=== PATIENT | female | born 1950 | race Caucasian/White ===

== ENCOUNTER 2016-10-01 15:34 | Inpatient (IN) | payer MEDICARE, OTHER ==
--- NOTE | ~2016-10-01 | HP ---
History And Physical [facility] [address] [place]. [address] NAME: WILBUR DE LA VEGA : 52 STATUS : ADM Lana PAT#: [id number] AGE: 66 ADM/REG DATE : 10/01/16 MR#: [id number] REPORT SERV DATE: 10/02/16 DICTATED BY: JOSH FOOTE DATE: 10/01/16 REPORT STATUS : Draft TRANSCRIBED BY: MODL DATE: 10/01/16 DATE OF ADMISSION: 10/01/2016 POINT OF ENTRY: [facility] Emergency Department PRIMARY CARE PHYSICIAN: Valentín Toscano M.D. CHIEF COMPLAINT: Falls with feet pain. HISTORY OF PRESENT ILLNESS: Ms De La Vega is a 66-year-old female with a history of coronary artery disease with prior myocardial infarction, COPD, recurrent falls, and other medical comorbidities, who presents to the emergency room today after she suffered mechanical fall at home on with resulting bilateral lower extremity pain. The patient states that she slipped on a wet floor in her bathroom on . She denies any loss conscious, denies any head trauma, but does state that she was on the ground for about six or seven hours until family members could assist her with getting up. She states that as a result of the fall she had severe bilateral lower extremity primarily of plantar foot pain. The patient also reports some fevers at home of 102 degrees Fahrenheit a few days ago as well as cough, sputum production, and shortness of breath. Family is also concerned that the patient may be misusing her prescribed Xanax through Dr. Toscano, stating that a bottle of 60 that was prescribed earlier this month now only has two or three remaining. Though reportedly, there have been multiple discussions with Dr. Toscano in the past about limiting and/or eliminating the source of her pain medications and other sedating medications. Initial evaluation in the emergency room with stable vital signs. White count is normal. CPK was normal. Chest x-ray concerning for a right lower lobe as well as possible left lower lobe infiltrate. CT scan of the brain as well as C-spine were negative. Plain films of the hip, lumbar spine, and lower extremities were reportedly unremarkable. She was subsequently admitted to the Hospitalist Service for further evaluation and management. REVIEW OF SYSTEMS: Comprehensive review of systems, otherwise negative unless listed in history of present illness. MEDICAL HISTORY: 1. Coronary artery disease with prior PR. 2. COPD. 3. Asthma. 4. History of recurrent pneumonia. 5. Anxiety. 6. Chronic pain. History And Physical [address] [address] NAME: WILBUR DE LA VEGA : 52 STATUS : ADM Lana PAT#: [id number] AGE: 66 ADM/REG DATE : 10/01/16 MR#: [id number] REPORT SERV DATE: 10/02/16 DICTATED BY: JOSH FOOTE DATE: 10/01/16 REPORT STATUS : Draft TRANSCRIBED BY: THUY DATE: 10/01/16 7. Hypertension. 8. Recurrent falls. 9. Chronic lower back pain. 10.Dysphagia with concern for aspiration. 11.Mitral valve prolapse. 12.Iron-deficiency anemia. 13.Restless legs syndrome. 14.Gastroesophageal reflux disease with peptic ulcer disease. 15.Osteoarthritis. 16.Osteoporosis. 17.Degenerative disk disease. SURGICAL HISTORY: 1. Appendectomy. 2. Cholecystectomy. 3. Abdominal hysterectomy. 4. Left leg and hip ORIF. 5. Wrist surgery. ALLERGIES: ASPIRIN, NSAIDS, IBUPROFEN, AND IMITREX. HOME MEDICATIONS: 1. Tylenol 600 mg p.r.n. 2. Xanax 0.5 mg b.i.d. p.r.n. 3. Dulera two-puff inhalation daily. 4. Multivitamin one tab daily. 5. Inderal 40 mg daily. 6. Spiriva one cap inhalation daily. SOCIAL HISTORY: She denies any tobacco, alcohol, or illicits. Extensive and secondhand smoke exposure as documented previously. FAMILY MEDICAL HISTORY: Mother is alive and healthy in her 80s. Father of suicide. Siblings, otherwise healthy. LABS AND IMAGIN. White count is 5.4, hemoglobin is 10.4, hematocrit is 31.6, platelet count is 214. INR 1.2. 2. Sodium is 135, potassium 3.9 chloride 101 carbon dioxide 30, BUN 8, creatinine 0.36, glucose is 113, calcium is 8.7, magnesium 2.1. 3. Chest x-ray per my review shows right lower lobe as well as possible left lower lobe infiltrate with COPD type changes and hyperinflation and flattened diaphragms. 4. CPK is 112. CK-MB is 1.6. Troponin less than 0.02. 5. Urinalysis: Spec gravity 1.014, clear with trace ketones with 10 white blood cells per high power field with negative nitrite and negative leukocyte esterase. 6. CT scan of the brain shows no acute intracranial abnormality. 7. CT scan of the C-spine shows no acute changes or fractures just shows some chronic History And Physical [address] [address] NAME: WILBUR DE LA VEGA : 52 STATUS : ADM Lana PAT#: [id number] AGE: 66 ADM/REG DATE : 10/01/16 MR#: [id number] REPORT SERV DATE: 10/02/16 DICTATED BY: JOSH FOOTE DATE: 10/01/16 REPORT STATUS : Draft TRANSCRIBED BY: THUY DATE: 10/01/16 degenerative disk disease, multilevel. 8. Hip plain film, per ER review and report shows no acute abnormality, needs to be followed up with radiology report. 9. Plain films of the feet, also per ER report, no acute fracture or dislocation. Again, report needs to be followed in the morning. 10.Plain films of the lumbar spine also shows no acute deformity or fracture. Again, formal radiology needs to be follow up in the morning. 11.EKG, per my review shows sinus tachycardia with the heart rate of 104 with no evidence of any acute ischemia or infarction. PHYSICAL EXAMINATION: VITAL SIGNS: Temperature is 98.6 degrees Fahrenheit, pulse is 100, respirations 17, saturating 98% on 3 L by nasal cannula, blood pressure /74. On recheck, blood pressure is now 145/68, pulse of 97, saturating 98% on room air. GENERAL: The patient is awake, alert, and in no acute distress. Resting comfortably. She is a well-developed, well-nourished, elderly female. Multiple family members are at bedside. HEENT: Atraumatic and normocephalic. Moist mucous membranes. Pupils are equal, round, and reactive to light and accommodation. Extraocular eye movements are intact. No scleral icterus. NECK: No jugular venous distention. No carotid bruits. CARDIAC: Regular rate and rhythm. No murmurs or gallops. Normal respiratory effort. LUNGS: The patient has the nasal cannula in place, however, it is not in her nostrils, and she is saturating well with no distress. Does have some bibasilar inspiratory rhonchi, right greater than left. ABDOMEN: Soft, nontender, and nondistended with good bowel sounds. No rebound, guarding, or rigidity. EXTREMITIES: Warm, perfused. No cyanosis, clubbing, or edema. SKIN: Warm and dry. PSYCH: Affect appropriate. NEURO: Alert and oriented x3. Cranial nerves II through XII grossly intact. Speech is normal. Gait not assessed. MUSCULOSKELETAL: The patient does not have any obvious deformities of the bilateral lower extremities including the feet. She states that her pain mainly is on the plantar surface. However, it was felt again with visual inspection, I do not appreciate any evidence of any bruising or ecchymosis and the patient is only mildly tender to palpation over the plantar surfaces bilaterally with intact range of motion as well as movement. ASSESSMENT AND PLAN: Ms De La Vega is a 66-year-old female with a recent mechanical fall at home with bilateral distal lower extremity pain, initially found to have evidence of bibasilar pneumonia. PROBLEM LIST: 1. Bibasilar pneumonia. 2. Recent mechanical fall. 3. Bilateral distal lower extremity pain. 4. Family concerned for misuse of prescription sedating medications. History And Physical [address] [place]. [address] NAME: WILBUR DE LA VEGA : 52 STATUS : ADM Lana PAT#: [id number] AGE: 66 ADM/REG DATE : 10/01/16 MR#: [id number] REPORT SERV DATE: 10/02/16 DICTATED BY: JOSH FOOTE DATE: 10/01/16 REPORT STATUS : Draft TRANSCRIBED BY: MODL DATE: 10/01/16 5. History of dysphagia and possible aspiration. 6. History of chronic obstructive pulmonary disease and asthma. 7. History of recurrent pneumonia. PLAN: 1. Bibasilar pneumonia. Unclear etiology of the patient's pneumonia. The patient denies any loss conscious during her fall. Denies any recent troubles with dysphagia or aspiration. There is family concern for misuse of her prescription medications stating that the bottles almost empty when in fact the prescription was filled earlier this month of Xanax. We will empirically treat for community-acquired pneumonia with Rocephin and azithromycin. Follow up sputum as well as blood cultures. 2. Recurrent recent fall with bilateral lower extremity pain. CT scan of the C-spine and brain were unremarkable. Plain films of the hip, lower extremities, and lumbar spine report also unremarkable. However, this needs formal report. Radiology report is needed to follow up in the morning. Continue to monitor. 3. Chronic obstructive pulmonary disease. I do not appreciate any evidence of acute exacerbation at this time. We will place her on some DuoNeb and given pneumonia. 4. Recurrent mechanical falls. We will ask Physical Therapy to see and evaluate the patient for fall risk. 5. DVT prophylaxis. Lovenox subcu. CODE STATUS: The patient wished to be full code. JCB/MODL Josh Foote MD / [id number] CC: Valentín Toscano M.D.
--- NOTE | ~2016-10-01 | CN ---
Consultation Report [facility] [address] [place]. [address] NAME: WILBUR DE LA VEGA : 52 STATUS : ADM IN [facility]#: [id number] AGE: 66 ADM/REG DATE : 10/03/16 MR#: [id number] REPORT SERV DATE: 10/04/16 DICTATED BY: DAVID OSORIO IV DATE: 10/04/16 REPORT STATUS : Draft TRANSCRIBED BY: MODOlimpia DATE: 10/04/16 PULMONARY CONSULTATION DATE OF CONSULTATION: 10/04/2016 REASON FOR REQUEST: Possible pulmonary fibrosis with recurrent pneumonias. HISTORY OF PRESENT ILLNESS: History is obtained from the records and from the patient. Ms. De La Vega is a 66-year-old female with reported history of asthma/COPD, recurrent pneumonia with residual scarring and bronchiectasis, GERD, dysphagia, anxiety/depression, hypertension, coronary artery disease, and chronic pain syndrome, who is admitted following a fall with reports of cough, sputum production, and new pulmonary infiltrates. The patient has been hospitalized twice last year for significant pneumonias. She has also had suffered falls during these with significant extremity injury. She reportedly has had increased cough, productive of zlvok-bv-layy phlegm over the last few days, and then fell for which she presented to the emergency room. There, she was found to have new infiltrates on the chest radiograph for which she was placed on ceftriaxone and azithromycin. Chest x-ray demonstrated new pulmonary infiltrates from her March studies with a repeat chest CT scan obtained today with results as noted below. The patient is on bronchodilator medications at home which she uses by her report on an as-needed basis. She is followed by Dr. Brewer. She does not have a nebulizer and uses supplemental oxygen at nighttime. She has very limited exercise tolerance. The patient has had persistent chronic weight loss with review of systems as noted. The patient has had increased symptoms of reflux recently and has had several large volume reflux events with possible aspiration by her report. PULMONARY HISTORY: Remarkable for no history of childhood asthma. She carries a diagnosis of adult COPD/asthma. She has had pneumonia by her report four to six occasions. She is a lifelong nonsmoker, however, had significant secondary smoke exposure from her . 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 She is up to date on the seasonal influenza vaccine and is unsure about the Prevnar status. PAST MEDICAL HISTORY: 1. Asthma/COPD. 2. Recurrent pneumonias with residual scarring and bronchiectasis. 3. Reflux disease. 4. Dysphagia. 5. Anxiety/depression. 6. Hypertension. 7. Coronary artery disease. 8. Chronic pain syndrome. PAST SURGICAL HISTORY: 1. Bilateral tubal ligation. 2. Left hip repair. Consultation Report [facility] [id number] [place]. [address] NAME: WILBUR DE LA VEGA : 52 STATUS : ADM IN [facility]#: [id number] AGE: 66 ADM/REG DATE : 10/03/16 MR#: [id number] REPORT SERV DATE: 10/04/16 DICTATED BY: DAVID OSORIO IV DATE: 10/04/16 REPORT STATUS : Draft TRANSCRIBED BY: THUY DATE: 10/04/16 3. Hysterectomy. 4. Cholecystectomy. 5. Appendectomy. 6. Left radial fracture and surgical repair. 7. Surgical repair of fracture of her left lower extremity. ALLERGIES: IMITREX, ASPIRIN, AND IBUPROFEN, ALL CAUSE RASH. CURRENT MEDICATIONS: The patient is on Ceftin 500 mg twice a day, Dulera 2 puffs twice a day, heparin 5000 units q.8 hours, Megace 40 mg daily, Prinivil 10 mg daily, Remeron 7.5 mg at bedtime, Spiriva one capsule daily, multivitamin daily, and Toprol-XL 50 mg daily. SOCIAL HISTORY: Remarkable for no tobacco, alcohol, or illicit drug use. She is . Has two children. FAMILY HISTORY: Remarkable for mother with hypertension and gout. Father with brain tumor and seizure. REVIEW OF SYSTEMS: 14-systems reviewed and pertinent positives as noted above. PHYSICAL EXAMINATION: GENERAL: This is a cachectic chronically ill-appearing, elderly female, appearing older than her stated age. No distress at rest. She is alert, awake, and oriented. VITAL SIGNS: Temperature is 97.9, pulse is 87, respiratory rate is 20, saturations are 98% on 2 L via nasal cannula, and blood pressure is 157/67. HEENT: Normocephalic, atraumatic. Extraocular movements are intact. Pupils are react to light. Sclerae and conjunctiva normal. She has temporal wasting. She has a Mallampati II to III airway with upper and lower dentures and elongated soft palate and narrowing of the posterior pharyngeal space. NECK: Without any palpable lymphadenopathy or thyromegaly. CHEST: The patient is an inspiratory squeaks and crackles at both bases. There are some scattered rhonchi that resolved with cough. No true wheezes are noted. CARDIOVASCULAR: Jugular venous pulsations are 5-6 cm. She has 2+ carotid upstrokes. No obvious bruit. She has a regular S1, S2 with no clear S3. She has a 2/6 systolic murmur at the upper sternal border. Peripheral pulses are diminished. ABDOMEN: Scaphoid. Soft. There are surgical scars noted. There are hypoactive bowel sounds. There is no palpable hepatosplenomegaly or mass. EXTREMITIES: Demonstrate shortening of the left leg. There is no cyanosis, clubbing, or palpable cords. NEUROLOGIC: The patient has decreased dorsiflexion of the left foot. Strength is otherwise 5-/5 and symmetric. There is muscle wasting. Sensation is intact to light touch. LABORATORY DATA: I reviewed the chest CT scan which demonstrates areas of scar and the previous areas of significant infiltrate. There are some new infiltrates that the Consultation Report [facility] [address] [place]. [address] NAME: WILBUR DE LA VEGA : 52 STATUS : ADM IN PAT#: [id number] AGE: 66 ADM/REG DATE : 10/03/16 MR#: [id number] REPORT SERV DATE: 10/04/16 DICTATED BY: DAVID OSORIO IV DATE: 10/04/16 REPORT STATUS : Draft TRANSCRIBED BY: THUY DATE: 10/04/16 predominantly right base. There are patchy areas of bronchiectasis, particularly in the middle lobe in the area of the infiltrate in the right upper lobe. There is decrease in the size of the left hemithorax with some pleural thickening likely from old inflammatory changes that has actually improved somewhat from previous studies. No significant adenopathy or masses noted. CBC: Hemoglobin is 11.5, hematocrit 34.4, platelet count was 372,000, and white count is 5.5. Chemistry: Sodium 137, potassium 3.4, chloride 102, bicarbonate 30, BUN 3, creatinine 0.38, glucose of 101. Urinalysis is unremarkable and a repeat potassium was 4.1 after replacement. ASSESSMENT AND PLAN: 1. Respiratory. There is no radiographic evidence for IPF or UIP type scarring. The patient does have areas of postinflammatory scarring with some bronchiectasis. I am concerned with the patient having significant reflux with aspiration and possible swallowing aspiration as well. She uses a normal diet in the care facility. We will continue the current bronchodilator medications. Acapella valve will be given with bronchiectasis to use twice a day. Oxygen will be provided as needed to maintain saturations greater than 90%. 2. Infectious disease. Quantitative immunoglobulins IgG subclass levels will be obtained with recurrent infections. HIV will be obtained with the weight loss. No recurrent infections. We will clarify with Dr. Toscano if she has received the Prevnar-13 vaccination. 3. Gastrointestinal. Protonix will be given twice a day. Head of bed will be kept at 30 to 45 degrees. A barium esophagram will be obtained, which we will also then look for reflux which persistent midchest dysphagia. 4. Neurologic. The patient had failed her swallow evaluation in March. She will be given a mechanical soft diet with chopped meats and gravy and thin liquids. The patient be given thiamine 200 mg daily to avoid refeeding syndrome with the debilitated state. She will remain on the multivitamin. 5. Renal. Phosphate level will be obtained. Potassium has been replaced. 6. Hematologic. With the low normal indices, iron studies will be repeated with less of an inflammatory state in March. Thank you for consulting us. We will follow up the patient with you. MICHAEL/THUY David Osorio IV, M.D. / [id number] Consultation Report [place] [place] [id number] [facility] [place]. [address] NAME: WILBUR DE LA VEGA : 52 STATUS : ADM IN [facility]#: [id number] AGE: 66 ADM/REG DATE : 10/03/16 MR#: [id number] REPORT SERV DATE: 10/04/16 DICTATED BY: DAVID OSORIO IV DATE: 10/04/16 REPORT STATUS : Draft TRANSCRIBED BY: THUY DATE: 10/04/16 CC: Lynsey Williamson M.D.
--- NOTE | ~2016-10-01 | DS ---
Discharge Summary [facility] [address] [place]. [address] NAME: WILBUR FU : 52 STATUS : DIS IN PAT#: [id number] AGE: 66 ADM/REG DATE : 10/03/16 MR#: [id number] REPORT SERV DATE: 10/08/16 DICTATED BY: ASUNCION CADRENAS DATE: 10/07/16 REPORT STATUS : Draft TRANSCRIBED BY: MODL DATE: 10/07/16 ADMISSION DATE: 10/03/2016 DISCHARGE DATE: 10/07/2016 PRINCIPAL DIAGNOSES: Pneumonia due to aspiration due to benzodiazepine abuse, gastroesophageal reflux disease, and presbyesophagus. SECONDARY DIAGNOSES: Secondary pulmonary fibrosis, cachexia with malnutrition, and chronic obstructive pulmonary disease. HISTORY OF PRESENT ILLNESS: Please see Dr. Ferrell dictation 10/01/2016. HOSPITAL COURSE: Admitted with pneumonia, recurrent. There was an exam appearance actually of pulmonary fibrosis, however, a CT revealed this is a secondary fibrosis with secondary bronchiectasis from multiple previous episodes of pneumonia which appeared to have been of an aspiration variety. The patient was in fact found to have presbyesophagus with GERD on barium imaging, however, she passed a modified barium swallow test. The greatest concern was that the patient had been over-using her Xanax resulting in further mental status changes and higher risk of aspiration. She was changed from 0.5 to 0.25 at p.r.n. only and encouraged to greatly improve her p.o. intake. She did have some vomit of the barium and delayed her discharge by one day but by 10/07/2016 she met the maximum benefit of hospitalization and was released home after passing physical therapy. Continue Protonix b.i.d., Remeron 15 at bedtime, thiamine supplements, lisinopril, Toprol, Megace 400 per day for a month. She will continue a course of Ceftin 500 b.i.d., to finish her course for pneumonia, Lortab 5 one-half q.4 p.r.n., and Xanax 0.25 b.i.d. p.r.n. with metered-dose inhalers as well as. She will follow up with Dr. Valentín Toscano, with whom she will follow up in as an outpatient in addition. DICTATED BY: Asuncion Cardenas M.D. [facility]/THUY Asuncion Cardenas M.D. / [id number] CC: Lynsey Juarez M.D.
[~2016-10-01 15:34] MED LIST: *UNABLE2; ADVAIR INH; ATEN25 PO; ATV.5 PO; BACDS PO; CEFT5 PO; CENTRUM PO; CENTRUM TAB1 TAB PO; CYMBALTA30 PO; DSS PO; DULERA 200 MCG/13 GM INH; FLORASTOR250 MG PO; FLOVENT110 INH; I10 PO; I40 PO; LEVAQUIN750 MG PO; LOP25 PO; MAXIMUM D3 PO; MEGACEUDL PO; MIRALAXPKT PO; NORCO1 TA2 PO; ORGAN-I NR200 MG PO; OXYCOD PO; OXYCONTIN30 MG PO; PEP20 PO; PRILOSEC40 MG PO; PROAIR HFA INH; PROTONIX PO; PROVHFA INH; SPIRIVA INH; SUCR PO; T PO; X5 PO
[2016-10-01 19:35] LABS: BASOPHILS 0.4 %; BASOPHILS ABSOLUTE 0.02 10/3/uL (0.0-0.16); EOSINOPHILS 2.4 %; EOSINOPHILS ABSOLUTE 0.13 10/3/uL (0.0-0.53); HEMOGLOBIN 10.4 g/dL (12.0-16.0); IMMATURE GRANULOCYTES 1.3 %; IMMATURE GRANULOCYTES ABSOLUTE 0.07 10/3/uL (0.0-0.11); LYMPHOCYTES 7.8 %; LYMPHOCYTES ABSOLUTE 0.42 10/3/uL (0.67-4.30); MEAN CORPUS HGB CONC 32.9 g/dL (32.0-36.0); MEAN CORPUSCULAR HEMOGLOB 27.8 pg (26.0-34.0); MEAN CORPUSCULAR VOLUME 84.5 fL (80-100); MEAN PLATELET VOLUME 10.3 fL (9.2-13.0); MONOCYTES 7.1 %; MONOCYTES ABSOLUTE 0.38 10/3/uL (0.21-1.20); NEUTROPHILS ABSOLUTE 4.35 10/3/uL (2.02-8.40); PLATELET COUNT 214 10/3/uL (150-400); RBC DISTRIBUTION WIDTH 16.3 % (12.0-16.0); RED CELL COUNT 3.74 10/6/uL (4.0-5.6); WHITE BLOOD CELLS 5.4 10/3/uL (4.5-10.5)
[2016-10-01 19:36] LABS: HEMATOCRIT 31.6 % (36.0-48.0); MANUAL DIFF NO %
[2016-10-01 19:38] LABS: ASCORBIC ACID (UR NOT ORDER) NEG (NEG); BILIRUBIN, URINE NEGATIVE (NEG); ER URINALYSIS TAT 0 Hrs 11 Mins; KETONE, URINE 80 MG/DL (NEG); LEUKOCYTE ESTERASE(NOT OR NEG (NEG); NITRITE (URINE) NEG (NEG); WBC (NOT ORDERED) (RFLEX) 10 (0-5)
[2016-10-01 19:40] LABS: INTERNATIONAL NORMAL RATI 1.2 UNITS (-); PARTIAL THROMBO TIME 28.2 SEC (22.5-37.2); PROTIME (NOT ORD) 14.7 SEC (12.0-14.5)
[2016-10-01 19:51] LABS: BUN (BLOOD UREA NITROGEN) 8 MG/DL (6-23); CALCIUM, SERUM 8.7 MG/DL (8.5-10.4); CHEST PAIN PROFILE TAT 0 Hrs 22 Mins; CHLORIDE, SERUM 101 MMOL/L (96-112); CO2 (CARBON DIOXIDE) 30 MMOL/L (24-34); CREATININE 0.36 MG/DL (0.55-1.02); GFR AFRICAN AMERICAN 131 ML/MIN (>=60); GFR NON AFRICAN AMERICAN 113 ML/MIN (>=60); POTASSIUM, SERUM 3.9 MMOL/L (3.5-5.3); SODIUM, SERUM 135 MMOL/L (135-148); TROPONIN I <0.02 NG/ML (<0.05)
[2016-10-01 19:52] LABS: CK-MB 1.6 NG/ML; CPK 112 U/L (0-200); GLUCOSE, SERUM 113 MG/DL (60-99)
[2016-10-01] MEDS ORDERED: X25 PO (20:28)
[2016-10-01] MEDS ORDERED: I40 PO (20:28)
[2016-10-01] MEDS ORDERED: DULERA 200 MCG/13 GM INH (20:30)
[2016-10-01] MEDS ORDERED: Spiriva Handihaler (20:31)
[2016-10-01] MEDS ORDERED: T PO (20:32)
[2016-10-01] MEDS ORDERED: OCUVITE PO (20:32)
[2016-10-01] MEDS ORDERED: MVI PO (20:32)
[2016-10-01 20:34] LABS: LACTATE 0.8 MMOL/L (0.3-2.4)
[2016-10-02 06:51] LABS: BASOPHILS 0.6 %; BASOPHILS ABSOLUTE 0.03 10/3/uL (0.0-0.16); EOSINOPHILS 4.9 %; EOSINOPHILS ABSOLUTE 0.25 10/3/uL (0.0-0.53); IMMATURE GRANULOCYTES 1.6 %; IMMATURE GRANULOCYTES ABSOLUTE 0.08 10/3/uL (0.0-0.11); LYMPHOCYTES 11.8 %; LYMPHOCYTES ABSOLUTE 0.61 10/3/uL (0.67-4.30); MANUAL DIFF NO %; MEAN CORPUS HGB CONC 33.3 g/dL (32.0-36.0); MEAN CORPUSCULAR HEMOGLOB 27.8 pg (26.0-34.0); MEAN CORPUSCULAR VOLUME 83.5 fL (80-100); MONOCYTES 9.5 %; MONOCYTES ABSOLUTE 0.49 10/3/uL (0.21-1.20); NEUTROPHILS 71.6 %; NEUTROPHILS ABSOLUTE 3.69 10/3/uL (2.02-8.40); PLATELET COUNT 190 10/3/uL (150-400); RBC DISTRIBUTION WIDTH 16.1 % (12.0-16.0); RED CELL COUNT 3.95 10/6/uL (4.0-5.6); WHITE BLOOD CELLS 5.2 10/3/uL (4.5-10.5)
[2016-10-02 07:10] LABS: BUN (BLOOD UREA NITROGEN) 5 MG/DL (6-23); CALCIUM, SERUM 8.4 MG/DL (8.5-10.4); CHLORIDE, SERUM 108 MMOL/L (96-112); CO2 (CARBON DIOXIDE) 27 MMOL/L (24-34); CREATININE 0.32 MG/DL (0.55-1.02); GFR AFRICAN AMERICAN 136 ML/MIN (>=60); GFR NON AFRICAN AMERICAN 118 ML/MIN (>=60)
[2016-10-02 07:12] LABS: GLUCOSE, SERUM 90 MG/DL (60-99); SODIUM, SERUM 145 MMOL/L (135-148)
[2016-10-03 06:32] LABS: HEMATOCRIT 32.6 % (36.0-48.0); HEMOGLOBIN 10.3 g/dL (12.0-16.0); MEAN CORPUSCULAR HEMOGLOB 26.7 pg (26.0-34.0); MEAN CORPUSCULAR VOLUME 84.5 fL (80-100); MEAN PLATELET VOLUME 9.2 fL (9.2-13.0); RBC DISTRIBUTION WIDTH 16.4 % (12.0-16.0); RED CELL COUNT 3.86 10/6/uL (4.0-5.6); WHITE BLOOD CELLS 3.6 10/3/uL (4.5-10.5)
[2016-10-03 06:36] LABS: MANUAL DIFF YES %; MEAN CORPUS HGB CONC 31.6 g/dL (32.0-36.0); PLATELET COUNT 290 10/3/uL (150-400)
[2016-10-03 06:40] LABS: BUN (BLOOD UREA NITROGEN) 4 MG/DL (6-23); CALCIUM, SERUM 8.6 MG/DL (8.5-10.4); CHLORIDE, SERUM 109 MMOL/L (96-112); CO2 (CARBON DIOXIDE) 27 MMOL/L (24-34); CREATININE 0.38 MG/DL (0.55-1.02); GFR AFRICAN AMERICAN 129 ML/MIN (>=60); GFR NON AFRICAN AMERICAN 111 ML/MIN (>=60); GLUCOSE, SERUM 91 MG/DL (60-99); POTASSIUM, SERUM 3.7 MMOL/L (3.5-5.3); SGOT(AST) 19 U/L (5-40); SGPT(ALT) 24 U/L (5-65); SODIUM, SERUM 143 MMOL/L (135-148); TOTAL BILIRUBIN 0.5 MG/DL (0-1.2)
[2016-10-03 06:41] LABS: A/G RATIO 0.7 (0.7-1.9); ALBUMIN 2.5 G/DL (3.5-5.0); ALKALINE PHOSPHATASE 162 U/L (45-117); GLOBULIN 3.5 G/DL (2.5-4.1)
[2016-10-03 06:52] LABS: BAND NEUTROPHILS 2 %; EOSINOPHILS 4 %; EOSINOPHILS ABSOLUTE (CALC) 0.14 10/3/uL (0.0-0.53); LYMPHOCYTES 21 %; LYMPHOCYTES ABSOLUTE (CALC) 0.76 10/3/uL (0.67-4.30); MONOCYTES 6 %; MONOCYTES ABSOLUTE (CALC) 0.22 10/3/uL (0.21-1.20); NEUTROPHILS ABSOLUTE (CALC) 2.48 10/3/uL (2.02-8.40); PLATELET ESTIMATE ADQ (ADEQUATE); RBC MORPHOLOGY NORM (NORMAL); SEGMENTED NEUTROPHIL (0) 67 %; TOTAL NUCLEATED CELLS 100
[2016-10-03 14:43] LABS: PROCALCITONIN 0.63 ng/mL (<0.5)
[2016-10-04 06:35] LABS: BASOPHILS 0.4 %; BASOPHILS ABSOLUTE 0.02 10/3/uL (0.0-0.16); EOSINOPHILS 6.9 %; EOSINOPHILS ABSOLUTE 0.38 10/3/uL (0.0-0.53); HEMATOCRIT 34.4 % (36.0-48.0); HEMOGLOBIN 11.5 g/dL (12.0-16.0); IMMATURE GRANULOCYTES 0.4 %; IMMATURE GRANULOCYTES ABSOLUTE 0.02 10/3/uL (0.0-0.11); LYMPHOCYTES 13.6 %; LYMPHOCYTES ABSOLUTE 0.75 10/3/uL (0.67-4.30); MANUAL DIFF NO %; MEAN CORPUS HGB CONC 33.4 g/dL (32.0-36.0); MEAN CORPUSCULAR HEMOGLOB 28.1 pg (26.0-34.0); MEAN CORPUSCULAR VOLUME 84.1 fL (80-100); MEAN PLATELET VOLUME 9.1 fL (9.2-13.0); MONOCYTES 6.2 %; MONOCYTES ABSOLUTE 0.34 10/3/uL (0.21-1.20); NEUTROPHILS 72.5 %; PLATELET COUNT 372 10/3/uL (150-400); RED CELL COUNT 4.09 10/6/uL (4.0-5.6); WHITE BLOOD CELLS 5.5 10/3/uL (4.5-10.5)
[2016-10-04 06:47] LABS: BUN (BLOOD UREA NITROGEN) 3 MG/DL (6-23); CALCIUM, SERUM 9.1 MG/DL (8.5-10.4); CHLORIDE, SERUM 102 MMOL/L (96-112); CO2 (CARBON DIOXIDE) 30 MMOL/L (24-34); CREATININE 0.38 MG/DL (0.55-1.02); GFR AFRICAN AMERICAN 129 ML/MIN (>=60); GFR NON AFRICAN AMERICAN 111 ML/MIN (>=60); GLUCOSE, SERUM 101 MG/DL (60-99); POTASSIUM, SERUM 3.4 MMOL/L (3.5-5.3); SODIUM, SERUM 137 MMOL/L (135-148)
[2016-10-04 10:35] LABS: POTASSIUM, SERUM 4.1 MMOL/L (3.5-5.3)
[2016-10-04 14:13] LABS: ASCORBIC ACID (UR NOT ORDER) NEG (NEG); BILIRUBIN, URINE NEGATIVE (NEG); KETONE, URINE NEGATIVE (NEG); LEUKOCYTE ESTERASE(NOT OR NEG (NEG); WBC (NOT ORDERED) (RFLEX) 1 (0-5)
[2016-10-04 18:53] LABS: PHOSPHORUS, SERUM 3.3 MG/DL (2.5-4.5)
[2016-10-05 08:09] LABS: IMMUNOGLOBULIN A 179 MG/DL (70-420); IMMUNOGLOBULIN G 697 MG/DL (673-1464); IMMUNOGLOBULIN M 66 MG/DL (30-270)
[2016-10-06 06:32] LABS: CALCIUM, SERUM 9.9 MG/DL (8.5-10.4); CHLORIDE, SERUM 103 MMOL/L (96-112); CO2 (CARBON DIOXIDE) 25 MMOL/L (24-34); CREATININE 0.82 MG/DL (0.55-1.02); GFR AFRICAN AMERICAN 87 ML/MIN (>=60); GFR NON AFRICAN AMERICAN 75 ML/MIN (>=60); POTASSIUM, SERUM 3.8 MMOL/L (3.5-5.3); SODIUM, SERUM 138 MMOL/L (135-148)
[2016-10-06 06:33] LABS: BUN (BLOOD UREA NITROGEN) 28 MG/DL (6-23); GLUCOSE, SERUM 125 MG/DL (60-99)
[2016-10-06] MEDS ORDERED: PRIN10 PO (13:46)
[2016-10-06] MEDS ORDERED: REM15 PO (13:46)
[2016-10-06] MEDS ORDERED: MEGACEUDL PO (13:47)
[2016-10-06] MEDS ORDERED: LOP25 PO (13:47)
[2016-10-06] MEDS ORDERED: PROTONIX PO (13:48)
[2016-10-06] MEDS ORDERED: CEFT5 PO (13:48)
[2016-10-06] MEDS ORDERED: NORCO1 TA1 PO (13:50)
[2016-10-07 07:07] LABS: IMMUNOGLOBULIN G SUBCLASS 1 479 mg/dL (405-1011); IMMUNOGLOBULIN G SUBCLASS 2 231 mg/dL (169-786); IMMUNOGLOBULIN G SUBCLASS 3 29 mg/dL (11-85); IMMUNOGLOBULIN G SUBCLASS 4 15 mg/dL (3-201)
== END 2016-10-07 12:00 | disposition home health service (06) | DRG 917 ==
LOC: ER 15:34 → 4SO 21:15
PROVIDERS: Hospitalist; Internal Medicine; Internal Medicine Critical Care Medicine; Nurse Practitioner
DX: T42.4X1A Poisoning by benzodiazepines, accidental (unintentional), initial encounter (principal); J69.0 Pneumonitis due to inhalation of food and vomit; J96.21 Acute and chronic respiratory failure with hypoxia; E43 Unspecified severe protein-calorie malnutrition; Z68.1 Body mass index [BMI] 19.9 or less, adult; R13.10 Dysphagia, unspecified; Y92.002 Bathroom of unspecified non-institutional (private) residence as the place of occurrence of the external cause; I25.10 Atherosclerotic heart disease of native coronary artery without angina pectoris; I25.2 Old myocardial infarction; J45.909 Unspecified asthma, uncomplicated; M54.5 Low back pain; D50.9 Iron deficiency anemia, unspecified; G25.81 Restless legs syndrome; K21.9 Gastro-esophageal reflux disease without esophagitis; Z87.11 Personal history of peptic ulcer disease; M81.0 Age-related osteoporosis without current pathological fracture; Z88.8 Allergy status to other drugs, medicaments and biological substances; M79.672 Pain in left foot; M79.671 Pain in right foot; Z91.81 History of falling; Z87.01 Personal history of pneumonia (recurrent); G89.4 Chronic pain syndrome; K22.8 Other specified diseases of esophagus; J47.9 Bronchiectasis, uncomplicated; R91.1 Solitary pulmonary nodule; Z99.81 Dependence on supplemental oxygen; Z77.22 Contact with and (suspected) exposure to environmental tobacco smoke (acute) (chronic); F41.1 Generalized anxiety disorder; R07.9 Chest pain, unspecified
CPT/HCPCS: 70450; 71020; 71250; 72100; 72125; 73521; 73630-50; 74220; 74230; 80048; 80053; 81001; 82550; 82553; 82784; 82787; 82787-59; 82962; 83540; 83550; 83605; 83735; 83874; 84100; 84132; 84145; 84443; 84484; 85025; 85610; 85730; 87040; 87150; 87389; 87449; 92611-GN; 93005; 94640; 94667; 94668; 96365; 96375; 97110-GP; 97116-GP; 97161-GP; 99285; A9270-GY; C9113; G8978-CJ-GP; G8979-CI-GP; G8996-CJ-GN; G8997-CJ-GN; G8998-CJ-GN; J0360; J0456; J2405; J3411

== ENCOUNTER 2016-10-11 08:04 | Inpatient (IN) | payer MEDICARE, OTHER ==
--- NOTE | ~2016-10-11 | DS ---
Discharge Summary [facility] [address] [place]. [address] NAME: WILBUR FU : 52 STATUS : DIS IN PAT#: [id number] AGE: 66 ADM/REG DATE : 10/11/16 MR#: [id number] REPORT SERV DATE: 10/27/16 DICTATED BY: TOMAS CLAIRE DATE: 10/26/16 REPORT STATUS : Draft TRANSCRIBED BY: MODL DATE: 10/26/16 ADMISSION DATE: 10/11/2016 DISCHARGE DATE: 10/26/2016 DISCHARGE MEDICATIONS: Dicyclomine 20 p.o. before meals; Pepcid 20 p.o. b.i.d. p.r.n. GERD, she has concomitant C. diff; metoprolol tartrate 25 p.o. b.i.d.; Florastor one capsule p.o. b.i.d.; Spiriva 18 mcg capsule inhaled daily; vancomycin 125 p.o. liquid q.6 h for 3 days and a taper, see my script which will include 125 p.o. b.i.d. for seven days, 125 p.o. daily for seven days, 125 p.o. every other day for eight days, and 125 p.o. every third day for 15 days; albuterol p.r.n.; Dulera home dose; Xanax home dose, try to reduce that down as an outpatient; Lortab 5/325 p.o. q.6 h. p.r.n. pain, try to reduce that down as an outpatient; Megace as an outpatient home dose; Remeron home dose. CONSULTS: For GI, apparently Vascular Surgery one time as well. HOSPITAL COURSE: This is a pleasant 66-year-old female who appears older than her stated age, came to the Critical Care Service secondary to GI bleed, intractable abdominal pain, known history of frequent falls, aspiration pneumonia, over use of her pain medications and Xanax as an outpatient, had a significant hemodynamically unstable anemia, bright red blood per rectum, right-sided colitis. Dr. Reynolds and Dr. Ortiz of Surgery evaluated the patient with Dr. Ying and Dr. Elizondo. The patient was stated that a conservative approach is the best approach given extreme debilitation, not a great surgical candidate. The patient got a unit of blood, two FFPs, known history of pulmonary fibrosis, chronic aspiration causing bronchiectasis, possible COPD as well, known history during hospitalization of JAEL, had noted severe protein-calorie malnutrition, cachexia, placed on Marinol, will try home Megace, getting PPI drip. At one point, had a mesenteric Doppler that showed celiac mid distal SMA stenosis and a repeat CTA, was waiting on the CTA and is a delay because of contrast residual retention. Finally, CTA showed no evidence of arterial abnormality abdomen or pelvis, slight retroperitoneal lymph node prominence, follow as an outpatient likely as a result of C. diff. The Surgery stated there was no large vessel mesenteric vascular disease, unclear why the duplex is interpreted to be abnormal. The patient had a Dobbhoff at one point, no longer requires. Her antibiotics aside from her p.o. vancomycin, discontinued on the . So, she will have seven days of p.o. vancomycin 125 p.o. q.6 h., then taper as an addendum to my discharge meds. The patient has done quite well, seen by Dr. Carrasco. The etiology of right-sided colitis is hematochezia and has been stated that she needs to reduce her dependence on narcotics. We will give a taper given her immunocompromised risks with age 66 as well, risk of recurrence of C. diff. We will also recommend the patient to go to a facility. The patient adamantly declined. As a result, the patient will go home with home health, home PT. Her diet was increased to a soft diet. Recommend Ensure one can p.o. t.i.d. as well. Consult with Critical Care, Vascular Surgery, Surgery, GI. Discharge Summary [address] [address] NAME: WILBUR FU : 52 STATUS : DIS IN PAT#: [id number] AGE: 66 ADM/REG DATE : 10/11/16 MR#: [id number] REPORT SERV DATE: 10/27/16 DICTATED BY: TOMAS CLAIRE DATE: 10/26/16 REPORT STATUS : Draft TRANSCRIBED BY: THUY DATE: 10/26/16 PROCEDURE: PICC line. DISCHARGE DIAGNOSES: Hematochezia, right-sided colitis, Clostridium difficile, malnutrition, hypertension, chronic obstructive pulmonary disease, pulmonary fibrosis, protein-calorie malnutrition, debility. All questions were answered. It took well over 30 minutes to do. DICTATED BY: Tomas Claire DO WST/DEZL Tomas Claire DO / [id number] CC: DO Valentín Newman M.D.
--- NOTE | ~2016-10-11 | CN ---
Consultation Report [facility] [address] [place]. [address] NAME: WILBUR DE LA VEGA : 52 STATUS : ADM IN PAT#: [id number] AGE: 66 ADM/REG DATE : 10/11/16 MR#: [id number] REPORT SERV DATE: 10/11/16 DICTATED BY: AGGIE ELIZONDO DATE: 10/11/16 REPORT STATUS : Draft TRANSCRIBED BY: MODL DATE: 10/11/16 GI CONSULTATION DATE OF CONSULTATION: REASON FOR CONSULTATION: Hematochezia and abdominal pain. HISTORY OF PRESENT ILLNESS: Ms. De La Vega is an extremely frail 66-year-old lady, who looks much older than her age, who has been having some lower abdominal pain and discomfort for the last few weeks and presented today with worsening pain in the lower abdomen and hematochezia. On presentation, she had an extremely elevated white count of 27.1, hemoglobin 8.7, hematocrit 26, and platelets of 609,000. INR was 1.1. She had a neutrophil count, which was extremely elevated at 24.74. Chemistry panel showed a BUN of 48 and creatinine of 1.06, which is elevated compared to her baseline. Lipase was 37. Liver panel was normal. Albumin is 2.6. Lactate was normal at 1.2. She had a CT scan of the abdomen and pelvis done with contrast, which reveals edema in the right colon wall consistent with colitis, possibly ischemic or infectious, no pneumatosis. The proximal celiac and SMA were patent. The intra and extrahepatic biliary ducts were dilated. I believe this is secondary to past cholecystectomy as LFTs are normal. About a year ago, she had an EGD for abnormal abdominal x-ray. EGD revealed normal duodenal and stomach. Exam was otherwise normal. PAST MEDICAL HISTORY: 1. History of gastric outlet obstruction. 2. Pulmonary fibrosis with recurrent pneumonia. 3. GERD. 4. Anxiety and depression. 5. Hypertension. 6. Coronary artery disease with chronic pain syndrome. PAST SURGICAL HISTORY: Includes tubal ligation and left hip repair. HOME MEDICATIONS: Include Xanax, Ceftin, Baldwin, Prinivil, Megace, Toprol, Remeron, Dulera, Theragran, Protonix, and Spiriva. HABITS: Used to smoke, not at present. PHYSICAL EXAMINATION: VITAL SIGNS: Heart rate is 90, blood pressure is stable. GENERAL: She is an extremely frail 66-year-old lady, somewhat short of breath. NECK: Supple without lymphadenopathy. LUNGS: Reveal markedly decreased air entry. ABDOMEN: Somewhat distended. There is diffuse tenderness with some guarding, rigidity, and Consultation Report [place] [address] [place]. [id number] NAME: WILBUR DE LA VEGA : 52 STATUS : ADM IN PAT#: [id number] AGE: 66 ADM/REG DATE : 10/11/16 MR#: [id number] REPORT SERV DATE: 10/11/16 DICTATED BY: AGGIE ELIZONDO DATE: 10/11/16 REPORT STATUS : Draft TRANSCRIBED BY: MODL DATE: 10/11/16 rebound. LABORATORY DATA: X-rays and labs as reviewed above. IMPRESSION: 1. Abdominal pain and lower gastrointestinal bleed. Colitis by CT scan. Would be concerned about ischemic colitis, however, SMA and celiac are patent by CT criteria. 2. Elevated white count, possibly from the ischemic colitis, which also accounts for the abdominal pain. 3. Other problems as mentioned. RECOMMENDATIONS: I discussed at length with the patient and with the family, which include daughter and sister of the patient. I explained to them that the prognosis is very guarded. Hopefully, things will get better as the colitis subsides. If in case this is ischemic colitis, prognosis is very bad. Again, SMA and celiac are patent. I discussed with the patient. She does not want any type of GI or surgical intervention at present. We will follow along. BINDU/THUY Alejandro Elizondo M.D. / [id number] CC: MD Valentín Knutson M.D. Walter Rose, M.D.
--- NOTE | ~2016-10-11 | IDS ---
Interim Discharge Summary [facility] [address] [place]. [address] NAME: WILBUR FU : 52 STATUS : ADM IN PAT#: [id number] AGE: 66 ADM/REG DATE : 10/11/16 MR#: [id number] REPORT SERV DATE: 10/23/16 DICTATED BY: DANY CAMPBELL DATE: 10/23/16 REPORT STATUS : Draft TRANSCRIBED BY: MODL DATE: 10/23/16 ADMISSION DATE: 10/11/2016 DISCHARGE DATE: This dictation is an addition to interim discharge summary dictated by Dr. Gillette on 10/15/2016. I assumed care of the patient on 10/17/2016. At the time of my assumption of care, GI was already following the patient. Briefly, the patient came in with a complaint of hematochezia, status post shortly after discharge from the hospital for pneumonia management. At the time of her evaluation, CT scan noted right-sided colitis, there was concern for an ischemic etiology. Surgery was subsequently consulted. Given her multiple comorbidities, surgical intervention was deemed too risky for the patient. The case was discussed with the patient and family and they agreed for medical management. GI has been following the patient throughout my care of the patient and their assistance is greatly appreciated. At the time of my assumption of care, due to persistent of postprandial pain, a mesenteric Doppler was ordered which was concerning for an occlusion. I discussed the imaging with the radiologist who stated that upon further review of the imaging, finding was not consistent with mesenteric ischemia or mesenteric occlusion. CTA abdomen was recommended to further evaluate the mesenteries. At the time of performance of the CT portion of the study, it was noted that the patient has significant amount of contrast in her stomach, contrast was from 10/05 study. Hence, the CTA abdomen was not able to be performed. The patient was given laxatives to assist in evacuation of the contrast. Further KUB has noted significant evacuation of contrast with contrast left in the rectum and the cecum. In terms of her pain, her pain has remained persistent, currently being managed with pain medications. The patient has been started on liquid diet which she is tolerating, and the patient is progressively increasing her activity, although she complains of worsening pain with activity. Plan at this point is to transition the patient to a soft diet and continue pain management. Given that that contrast in her abdomen is almost clearing, it would be beneficial to obtain a CTA of the abdomen to definitively determine if she has a mesenteric or abdominal major vessel occlusion that may explain the etiology of her abdominal pain. Discharge planning will be deferred to oncoming hospitalist. LUZ MARINA/THUY Dany Campbell MD / [id number] CC: MD Valentín Caballero M.D.
--- NOTE | ~2016-10-11 | IDS ---
Interim Discharge Summary [facility] [address] [place]. [address] NAME: WILBUR FU : 52 STATUS : ADM IN PAT#: [id number] AGE: 66 ADM/REG DATE : 10/11/16 MR#: [id number] REPORT SERV DATE: 10/15/16 DICTATED BY: MENDEZ GILLETTE DATE: 10/15/16 REPORT STATUS : Draft TRANSCRIBED BY: MODL DATE: 10/15/16 ADMISSION DATE: 10/11/2016 DISCHARGE DATE: HISTORY OF PRESENT ILLNESS: This is a 66-year-old patient, who was admitted to the Critical Care Service, secondary to GI bleed and intractable abdominal pain. For details please see Dr. Campos's H and P. The patient has had frequent falls, frequent aspiration pneumonia, and it is thought that she more than likely over uses her pain medications, and Xanax as an outpatient. This time she comes in with hypotension, anemia, and was found in her bed on the morning of admission with bright red blood and dark blood on the sheets. CT scan of the abdomen was done showed a right-sided colitis, possibly ischemic in nature. Surgery, Dr. Reynolds has been following the patient, and Dr. Ortiz over the weekend, as well as Dr. Spencer Elizondo GI, and Dr. Ying covering over the weekend. After much discussion with the family, conservative approach was thought to be the best way, since the patient is extremely debilitated, and not a great surgical candidate. So, the patient has been started on antibiotics as per their recommendation and her white cell count which was elevated has come down. She has not had any bloody stools here, and only has required 1 unit of blood, and 2 units of fresh frozen plasma. She has had issues with p.o. intake for quite some time. So, bowel rest was recommended, p.o. intake was started on Sunday afternoon, the patient was able to take some p.o., but then vomited later in the evening. A very long discussion was undertaken both with Surgery, GI, the patient, and her daughter regarding further nutrition. So, the plan is as of now that the patient will try eat on Sunday throughout the day. If she continues to have difficulty with nausea and vomiting, all are in agreement for placement of a Dobhoff tube and start tube feeds. At this time, a KUB was done. Chronic pain. The patient always has some level of pain especially abdominal pain. So therefore, it is very difficult to gauge how much of the pain is chronic and how much of the pain is possibly related to her ongoing issues with her bowel. She seems a little bit better today and so we are monitoring that closely and we will check LFTs today. The patient has a history of pulmonary fibrosis that seems to be mostly related to chronic aspiration causing bronchiectasis. She continues on her bronchodilator protocol. Acute blood loss anemia has been stable. JAEL has resolved and the patient is not on any pressors, but has good IV access with a PICC line that was placed on 10/14/2016. Leukocytosis is resolving. Thrombocytosis is probably reactive, follow. Severe protein calorie malnutrition and cachexia, has been addressed, and of note, the patient is on Megace at home. Remeron has been ordered, but the patient is not taking it because she says it causes nausea and vomiting. Possibly Reglan could be a consideration. Interim Discharge Summary [place] [id number] [place]. [address] NAME: WILBUR FU : 52 STATUS : ADM IN [facility]#: [id number] AGE: 66 ADM/REG DATE : 10/11/16 MR#: [id number] REPORT SERV DATE: 10/15/16 DICTATED BY: MENDEZ GILLETTE DATE: 10/15/16 REPORT STATUS : Draft TRANSCRIBED BY: THUY DATE: 10/15/16 Because of her history of GI bleeding. She has SCDs and has not been on anticoagulation for DVT prophylaxis. She is on a Protonix drip at 8 mg an hour. Because of her frequent requests for pain medication, she is on a miniscule dose of Dilaudid [employer] without basal. We have ordered Dulcolax if she becomes constipated and if the KUB is done, if she is indeed full of stool, she will need further bowel regime. If the patient remains stable over Sunday, she will be transferred to a monitored bed later on Sunday or on Sunday morning. She has a history of hypertension and is on antihypertensive medications at home. This has been held because of her low blood pressure when she came in, but can be restarted once her blood pressure stabilizes. /MODL Mendez Gillette M.D. / [id number] CC: MD Valentín Knutson M.D.
--- NOTE | ~2016-10-11 | HP ---
History And Physical [place] [id number] [place]. [address] NAME: WILBUR DE LA VEGA : 52 STATUS : ADM IN [facility]#: [id number] AGE: 66 ADM/REG DATE : 10/11/16 MR#: [id number] REPORT SERV DATE: 10/11/16 DICTATED BY: DEIDRE VELASQUEZ DATE: 10/11/16 REPORT STATUS : Draft TRANSCRIBED BY: MODL DATE: 10/11/16 DATE OF ADMISSION: 10/11/2016 PULMONARY CRITICAL CARE MEDICINE ADMITTING HISTORY AND PHYSICAL REASON FOR ADMISSION: GI bleed and intractable abdominal pain. HISTORY OF PRESENT ILLNESS: Ms De La Vega is a debilitated 66-year-old lady, who was actually just discharged from the Hospital Medicine Service a couple of days ago. She was admitted at that time for falls and aspiration pneumonia which was felt to be likely secondary to a sedation with her outpatient medications including Xanax according to the discharge summary I reviewed which was dictated by Dr. Oseguera. She was feeling more weak and dizzy last night and today with couple of episodes of nausea and vomiting (without hematemesis), and was found today in bed with quite a bit of bright red and dark blood on the sheets. She was moved urgently to the Emergency Department, was seen by Dr. Meredith, was found to be mildly hypotensive and more anemic than her hemoglobin level when measured a couple of days ago on the day of hospital discharge, and GI was consulted for suspected GI bleed. A followup CT scan was performed in the Emergency Department which showed right-sided colitis (ischemic versus infectious), and Surgery has also been consulted (Dr. Reynolds). She is now being moved to the MICU for further care. PAST MEDICAL HISTORY: Coronary artery disease with previous myocardial infarctions, COPD with an FEV1 of around 9.4 and DLCO around 38 to 39. History of recurrent aspiration pneumonia with evidence of developing interstitial lung disease and bronchiectasis on CT, likely secondary to recurrent aspiration; esophageal dysmotility, which is likely contributing to her aspiration and chronic anxiety requiring long-term benzodiazepine with recent dose reduction due to excessive sedation, and chronic pain syndrome, on chronic narcotics; hypertension; recurrent falls, felt likely secondary to medications; and generalized weakness; chronic iron deficiency; mitral valve prolapse; restless legs syndrome; GERD; peptic ulcer disease; osteoarthritis; osteoporosis; and degenerative disk disease. PAST SURGICAL HISTORY: Includes appendectomy, cholecystectomy, abdominal hysterectomy, left leg and hip ORIF, and a wrist surgery. SOCIAL HISTORY: The patient denies alcohol, tobacco, or illicit drug use. She does note extensive secondhand smoke exposure through out her life. FAMILY HISTORY: Mother is alive in her 80s. Father committed suicide. Her siblings are otherwise healthy. ALLERGIES: DRUG ALLERGIES ARE EXTENSIVE AND LIST HAS BEEN REVIEWED IN THE CHART THIS, PLEASE SEE HER DETAILED MAR AND MEDITECH FOR ADDITIONAL INFORMATION WITH REGARD TO DRUG ALLERGIES. HOME MEDICATIONS: Also reviewed in the [facility] and include Xanax, Dulera, tiotropium, p.r.n. Tylenol, multivitamins, lisinopril, Remeron, Megace, metoprolol-XL, Protonix, History And Physical [address] [place]. [address] NAME: WILBUR DE LA VEGA : 52 STATUS : ADM IN [facility]#: [id number] AGE: 66 ADM/REG DATE : 10/11/16 MR#: [id number] REPORT SERV DATE: 10/11/16 DICTATED BY: DEIDRE VELASUQEZ DATE: 10/11/16 REPORT STATUS : Draft TRANSCRIBED BY: THUY DATE: 10/11/16 hydrocodone, and recent course of Ceftin. She is on no anticoagulants or antiplatelet agents according to her chart. The patient herself is a relatively poor historian. Advanced directive living [place]; none. She states she wants to be a full code. REVIEW OF SYSTEMS: A comprehensive 13-point review of systems was completed and is negative except for those points described above in the history of present illness section of the dictation. PHYSICAL EXAMINATION: GENERAL: The patient is a cachectic female, who is in no acute distress. She is mildly pale, but cooperative and interactive with the examination. HEENT: Head is atraumatic and normocephalic. Pupils are equal, round, and reactive to light. Extraocular movements are intact. She has mild conjunctival pallor, but no scleral icterus. Ears, nose, and mouth are unremarkable. She has dry oral mucosa and no evidence of gingival bleeding, blood in the mouth, or about the nares. NECK: Supple with no evidence of JVD. LUNGS: She has a barrel chest with symmetric breath sounds which are diminished at the bases bilaterally. HEART: S1, S2, brisk cap refill at distal extremities. ABDOMEN: Diffusely tender, right greater than left with minimal distention, slight guarding, and no evidence of rebound. Her bowel sounds are quiet. : A Salmon catheter has been inserted and is draining a translucent yellow urine. EXTREMITIES: Without clubbing, cyanosis, or edema. Her nails are well-manicured. LYMPHATICS: Unremarkable. NEUROLOGIC: Grossly intact. She is cooperative and interactive. Has symmetric strength bilaterally, intact sensation and appropriate mood and affect. Although, somewhat anxious. DIAGNOSTIC STUDIES: Personal review of diagnostic workup completed in the Emergency Department today. 1. Imaging: Her chest x-ray shows some evidence of interstitial lung disease at the bases bilaterally with emphysematous changes on this slightly rotated film. A CT of the abdomen and pelvis with contrast shows edematous right colon wall consistent with colitis without evidence of free air or pneumatosis proximal celiac and SMA are patent. She has intra and extrahepatic bile duct dilatation. 2. Laboratory workup: She has leukocytosis with a white blood cell count of 27,000 which is increased from 5.5 on 10/04/2016. She is anemic (normochromic normocytic) with a hemoglobin 8.7 and hematocrit of 26.0 which is down from 11.5 and 34.4, on 10/04/2016. Platelet count of 609. She has a neutrophil predominant differential and her INR is 1.5 on no anticoagulation (her lactate is 1.2). Metabolic profile shows mild hyponatremia. Sodium level of 134, potassium is 3.4 consistent with hypokalemia. She has mild metabolic acidosis with a CO2 level of 20, and mild acute kidney injury with a BUN of 48, and a creatinine of 1.06. Glucose level was within normal limits at 124. She has mild hypoalbuminemia at 2.6, and mildly elevated alkaline phosphatase at 129. Lipase level is normal at 37. Procalcitonin level was elevated at 3.90. IMPRESSION: 1. Acute gastrointestinal bleed. History And Physical [address] [address] NAME: WILBUR DE LA VEGA : 52 STATUS : ADM IN [facility]#: [id number] AGE: 66 ADM/REG DATE : 10/11/16 MR#: [id number] REPORT SERV DATE: 10/11/16 DICTATED BY: RONDEIDRE SRI DATE: 10/11/16 REPORT STATUS : Draft TRANSCRIBED BY: THUY DATE: 10/11/16 2. Acute blood loss anemia. 3. Hypotension secondary to hypovolemia and acute blood loss. 4. Right-sided colitis, infectious versus ischemic with a normal lactate and elevated procalcitonin in the setting of recent antibiotic use for aspiration pneumonia last week. Concerning for Clostridium difficile infection. 5. Dehydration. 6. Acute kidney injury, likely prerenal. 7. Hypokalemia. 8. Leukocytosis. 9. Thrombocytosis consistent with volume contraction. 10.Severe protein calorie malnutrition and cachexia with recent weight loss of unclear etiology. 11.Additional past medical history as above. PLAN: We have already admitted Ms De La Vega to the MICU. GI and Surgery have both been made aware of her case by Dr. Meredith, and we are awaiting further recommendations. We will screen her for C. difficile colitis. Proceed with ongoing volume resuscitation with both crystalloid and blood products including reflexive transfusion orders for packed red blood cells and FFP. The etiology of her coagulopathy remains unclear, and we will need to investigate this as well. She is awake, alert, oxygenating and ventilating well on minimal supplemental oxygen, and is requiring no vasopressor support. She has a central line which Dr. Meredith placed a femoral vein in the emergency department, and if she requires long-term central access, we will convert that to a PICC in a day or two. She has been started on a Protonix drip, and we will continue to trend her H and Hs pending GI evaluation. DVT prophylaxis will be SCDs and TEDs only in light of active bleeding, and she will be a full code and kept n.p.o. pending potential procedures this afternoon. We have allowed her fuse ice chips for comfort. I did review her extensive past medical record in both [employer] [facility] [employer]. I discussed her case with Dr. Meredith from the Emergency Department as well as Dr. Gillette who will be picking up her care tomorrow morning in the MICU. She has no family available at the bedside presently, but we will keep them updated as we learn more about her current clinical presentation. GISELLE Deidre Velasquez MD / [id number] CC: MD Valentín Knutson M.D.
[~2016-10-11 08:04] MED LIST changes: +MVI PO; +NORCO1 TA1 PO; +OCUVITE PO; +PRIN10 PO; +REM15 PO; +Spiriva Handihaler; +X25 PO
[2016-10-11 08:08] LABS: BASOPHILS 0 %; BASOPHILS ABSOLUTE 0.01 10/3/uL (0.0-0.16); EOSINOPHILS 0.1 %; EOSINOPHILS ABSOLUTE 0.02 10/3/uL (0.0-0.53); IMMATURE GRANULOCYTES 0.6 %; LYMPHOCYTES ABSOLUTE 0.81 10/3/uL (0.67-4.30); MEAN CORPUS HGB CONC 33.5 g/dL (32.0-36.0); MEAN CORPUSCULAR HEMOGLOB 28.1 pg (26.0-34.0); MEAN CORPUSCULAR VOLUME 83.9 fL (80-100); MEAN PLATELET VOLUME 10.1 fL (9.2-13.0); MONOCYTES ABSOLUTE 1.36 10/3/uL (0.21-1.20); NEUTROPHILS 91.3 %; NEUTROPHILS ABSOLUTE 24.74 10/3/uL (2.02-8.40); RBC DISTRIBUTION WIDTH 16.5 % (12.0-16.0)
[2016-10-11 08:09] LABS: ER CBC TAT 0 Hrs 05 Mins; HEMOGLOBIN 8.7 g/dL (12.0-16.0); IMMATURE GRANULOCYTES ABSOLUTE 0.16 10/3/uL (0.0-0.11); MANUAL DIFF NO %; PLATELET COUNT 609 10/3/uL (150-400); WHITE BLOOD CELLS 27.1 10/3/uL (4.5-10.5)
[2016-10-11 08:15] LABS: INTERNATIONAL NORMAL RATI 1.5 UNITS (-); PARTIAL THROMBO TIME 32.5 SEC (22.5-37.2); PROTIME (NOT ORD) 17.7 SEC (12.0-14.5)
[2016-10-11 08:25] LABS: ER DIFF TAT 0 Hrs 21 Mins; LYMPHOCYTES 2 %; LYMPHOCYTES ABSOLUTE (CALC) 0.54 10/3/uL (0.67-4.30); MONOCYTES 3 %; MONOCYTES ABSOLUTE (CALC) 0.81 10/3/uL (0.21-1.20); NEUTROPHILS ABSOLUTE (CALC) 25.75 10/3/uL (2.02-8.40); PLATELET ESTIMATE INC (ADEQUATE); SEGMENTED NEUTROPHIL (0) 95 %; TOTAL NUCLEATED CELLS 100
[2016-10-11 08:26] LABS: RBC MORPHOLOGY NORM (NORMAL)
[2016-10-11 08:29] LABS: A/G RATIO 0.7 (0.7-1.9); ALBUMIN 2.6 G/DL (3.5-5.0); CHLORIDE, SERUM 100 MMOL/L (96-112); CREATININE 1.06 MG/DL (0.55-1.02); GFR AFRICAN AMERICAN 64 ML/MIN (>=60); GFR NON AFRICAN AMERICAN 55 ML/MIN (>=60); GLOBULIN 3.7 G/DL (2.5-4.1); GLUCOSE, SERUM 124 MG/DL (60-99); POTASSIUM, SERUM 3.4 MMOL/L (3.5-5.3); SGOT(AST) 19 U/L (5-40); SGPT(ALT) 17 U/L (5-65); SODIUM, SERUM 134 MMOL/L (135-148); TOTAL BILIRUBIN 0.6 MG/DL (0-1.2); TOTAL PROTEIN 6.3 G/DL (6.0-8.5)
[2016-10-11 08:29] LABS: LACTATE 1.2 MMOL/L (0.3-2.4)
[2016-10-11 08:32] LABS: ALKALINE PHOSPHATASE 129 U/L (45-117); BUN (BLOOD UREA NITROGEN) 48 MG/DL (6-23); CALCIUM, SERUM 8.6 MG/DL (8.5-10.4); CO2 (CARBON DIOXIDE) 20 MMOL/L (24-34)
[2016-10-11 14:56] LABS: HEMATOCRIT 34.6 % (36.0-48.0); HEMOGLOBIN 11.7 g/dL (12.0-16.0)
[2016-10-11 15:01] LABS: INTERNATIONAL NORMAL RATI 1.4 UNITS (-); PARTIAL THROMBO TIME 27.7 SEC (22.5-37.2); PROTIME (NOT ORD) 16.6 SEC (12.0-14.5)
[2016-10-11 15:19] LABS: A/G RATIO 0.7 (0.7-1.9); ALBUMIN 2.8 G/DL (3.5-5.0); ALKALINE PHOSPHATASE 137 U/L (45-117); BUN (BLOOD UREA NITROGEN) 45 MG/DL (6-23); CALCIUM, SERUM 8.9 MG/DL (8.5-10.4); CHLORIDE, SERUM 101 MMOL/L (96-112); CK-MB 1.7 NG/ML; CO2 (CARBON DIOXIDE) 22 MMOL/L (24-34); CPK 104 U/L (0-200); CREATININE 1.04 MG/DL (0.55-1.02); FREE T4 1.63 NG/DL (0.76-1.46); GFR AFRICAN AMERICAN 65 ML/MIN (>=60); GFR NON AFRICAN AMERICAN 56 ML/MIN (>=60); GLOBULIN 4.1 G/DL (2.5-4.1); GLUCOSE, SERUM 100 MG/DL (60-99); PHOSPHORUS, SERUM 4.5 MG/DL (2.5-4.5); SGOT(AST) 18 U/L (5-40); SGPT(ALT) 18 U/L (5-65); SODIUM, SERUM 136 MMOL/L (135-148); TOTAL BILIRUBIN 1.1 MG/DL (0-1.2); TOTAL PROTEIN 6.9 G/DL (6.0-8.5); TROPONIN I <0.02 NG/ML (<0.05); ULTRASENSITIVE TSH 0.591 MCIU/ML (0.358-3.740)
[2016-10-11 15:47] LABS: PROCALCITONIN 4.67 ng/mL (<0.5)
[2016-10-11 16:22] LABS: SED RATE 73 MM/HR (0-20)
[2016-10-11 20:14] LABS: HEMATOCRIT 29.3 % (36.0-48.0)
[2016-10-11 20:19] LABS: INTERNATIONAL NORMAL RATI 1.3 UNITS (-); PROTIME (NOT ORD) 15.7 SEC (12.0-14.5)
[2016-10-12 03:17] LABS: HEMATOCRIT 30.1 % (36.0-48.0); HEMOGLOBIN 10.2 g/dL (12.0-16.0); MEAN CORPUS HGB CONC 33.9 g/dL (32.0-36.0); MEAN CORPUSCULAR HEMOGLOB 28.5 pg (26.0-34.0); MEAN CORPUSCULAR VOLUME 84.1 fL (80-100); MEAN PLATELET VOLUME 10.1 fL (9.2-13.0); PLATELET COUNT 548 10/3/uL (150-400); RBC DISTRIBUTION WIDTH 16.1 % (12.0-16.0); RED CELL COUNT 3.58 10/6/uL (4.0-5.6)
[2016-10-12 03:19] LABS: MANUAL DIFF YES %; WHITE BLOOD CELLS 15.6 10/3/uL (4.5-10.5)
[2016-10-12 03:21] LABS: INTERNATIONAL NORMAL RATI 1.4 UNITS (-); PROTIME (NOT ORD) 17.2 SEC (12.0-14.5)
[2016-10-12 03:34] LABS: ALBUMIN 2.5 G/DL (3.5-5.0); BUN (BLOOD UREA NITROGEN) 31 MG/DL (6-23); CALCIUM, SERUM 8.8 MG/DL (8.5-10.4); CHLORIDE, SERUM 105 MMOL/L (96-112); CO2 (CARBON DIOXIDE) 21 MMOL/L (24-34); CREATININE 0.71 MG/DL (0.55-1.02); GFR AFRICAN AMERICAN 104 ML/MIN (>=60); GFR NON AFRICAN AMERICAN 89 ML/MIN (>=60); GLUCOSE, SERUM 109 MG/DL (60-99); PHOSPHORUS, SERUM 2.3 MG/DL (2.5-4.5); POTASSIUM, SERUM 3.5 MMOL/L (3.5-5.3); SODIUM, SERUM 138 MMOL/L (135-148)
[2016-10-12 04:14] LABS: BAND NEUTROPHILS 13 %; LYMPHOCYTES 6 %; LYMPHOCYTES ABSOLUTE (CALC) 0.94 10/3/uL (0.67-4.30); MACROCYTES 1+ (5-10/OIF) (0-5/OIF); MONOCYTES 9 %; NEUTROPHILS ABSOLUTE (CALC) 13.26 10/3/uL (2.02-8.40); PLATELET ESTIMATE SLT INC (ADEQUATE); POLYCHROMASIA 1+ (2-5/OIF) (0-1/OIF); SEGMENTED NEUTROPHIL (0) 72 %; TOTAL NUCLEATED CELLS 100
[2016-10-12 08:03] LABS: ASCORBIC ACID (UR NOT ORDER) NEG (NEG); BILIRUBIN, URINE NEGATIVE (NEG); KETONE, URINE 80 MG/DL (NEG); LEUKOCYTE ESTERASE(NOT OR NEG (NEG); WBC (NOT ORDERED) (RFLEX) 1 (0-5)
[2016-10-13 04:31] LABS: INTERNATIONAL NORMAL RATI 1.5 UNITS (-); PROTIME (NOT ORD) 17.5 SEC (12.0-14.5)
[2016-10-13 04:32] LABS: BASOPHILS 0.2 %; BASOPHILS ABSOLUTE 0.02 10/3/uL (0.0-0.16); EOSINOPHILS 1.1 %; EOSINOPHILS ABSOLUTE 0.14 10/3/uL (0.0-0.53); HEMOGLOBIN 10.4 g/dL (12.0-16.0); IMMATURE GRANULOCYTES 0.6 %; IMMATURE GRANULOCYTES ABSOLUTE 0.08 10/3/uL (0.0-0.11); LYMPHOCYTES ABSOLUTE 0.92 10/3/uL (0.67-4.30); MEAN CORPUS HGB CONC 33.5 g/dL (32.0-36.0); MEAN CORPUSCULAR HEMOGLOB 28.4 pg (26.0-34.0); MEAN CORPUSCULAR VOLUME 84.7 fL (80-100); MEAN PLATELET VOLUME 9.8 fL (9.2-13.0); MONOCYTES 10.1 %; MONOCYTES ABSOLUTE 1.32 10/3/uL (0.21-1.20); NEUTROPHILS ABSOLUTE 10.61 10/3/uL (2.02-8.40); PLATELET COUNT 492 10/3/uL (150-400); RBC DISTRIBUTION WIDTH 16.5 % (12.0-16.0); RED CELL COUNT 3.66 10/6/uL (4.0-5.6); WHITE BLOOD CELLS 13.1 10/3/uL (4.5-10.5)
[2016-10-13 04:34] LABS: MANUAL DIFF NO %
[2016-10-13 04:54] LABS: CALCIUM, SERUM 8.6 MG/DL (8.5-10.4); CHLORIDE, SERUM 101 MMOL/L (96-112); CO2 (CARBON DIOXIDE) 22 MMOL/L (24-34); CREATININE 0.32 MG/DL (0.55-1.02); GFR AFRICAN AMERICAN 136 ML/MIN (>=60); GFR NON AFRICAN AMERICAN 118 ML/MIN (>=60); POTASSIUM, SERUM 3.6 MMOL/L (3.5-5.3); SODIUM, SERUM 135 MMOL/L (135-148)
[2016-10-13 04:55] LABS: BUN (BLOOD UREA NITROGEN) 9 MG/DL (6-23); GLUCOSE, SERUM 86 MG/DL (60-99); PHOSPHORUS, SERUM 1.5 MG/DL (2.5-4.5)
[2016-10-14 05:09] LABS: BASOPHILS 0.2 %; BASOPHILS ABSOLUTE 0.02 10/3/uL (0.0-0.16); EOSINOPHILS 1.2 %; EOSINOPHILS ABSOLUTE 0.14 10/3/uL (0.0-0.53); HEMATOCRIT 31.1 % (36.0-48.0); HEMOGLOBIN 10.3 g/dL (12.0-16.0); IMMATURE GRANULOCYTES 0.6 %; IMMATURE GRANULOCYTES ABSOLUTE 0.07 10/3/uL (0.0-0.11); LYMPHOCYTES 6.6 %; LYMPHOCYTES ABSOLUTE 0.74 10/3/uL (0.67-4.30); MEAN CORPUS HGB CONC 33.1 g/dL (32.0-36.0); MEAN CORPUSCULAR HEMOGLOB 28.3 pg (26.0-34.0); MEAN CORPUSCULAR VOLUME 85.4 fL (80-100); MEAN PLATELET VOLUME 9.4 fL (9.2-13.0); MONOCYTES 7.6 %; MONOCYTES ABSOLUTE 0.86 10/3/uL (0.21-1.20); NEUTROPHILS 83.8 %; NEUTROPHILS ABSOLUTE 9.45 10/3/uL (2.02-8.40); PLATELET COUNT 469 10/3/uL (150-400); RBC DISTRIBUTION WIDTH 16.4 % (12.0-16.0); RED CELL COUNT 3.64 10/6/uL (4.0-5.6); WHITE BLOOD CELLS 11.3 10/3/uL (4.5-10.5)
[2016-10-14 05:11] LABS: MANUAL DIFF NO %
[2016-10-14 05:25] LABS: INTERNATIONAL NORMAL RATI 1.6 UNITS (-); PROTIME (NOT ORD) 18.5 SEC (12.0-14.5)
[2016-10-14 05:32] LABS: ALBUMIN 2.4 G/DL (3.5-5.0); ALKALINE PHOSPHATASE 121 U/L (45-117); BUN (BLOOD UREA NITROGEN) 6 MG/DL (6-23); CALCIUM, SERUM 8.3 MG/DL (8.5-10.4); CHLORIDE, SERUM 100 MMOL/L (96-112); CO2 (CARBON DIOXIDE) 25 MMOL/L (24-34); CREATININE 0.31 MG/DL (0.55-1.02); DIRECT BILIRUBIN < 0.1 MG/DL (0.0-0.4); GFR AFRICAN AMERICAN 138 ML/MIN (>=60); GFR NON AFRICAN AMERICAN 119 ML/MIN (>=60); GLUCOSE, SERUM 94 MG/DL (60-99); INDIRECT BILIRUBIN(NOT ORDER) 0.3 MG/DL (0.1-0.9); PHOSPHORUS, SERUM 1.6 MG/DL (2.5-4.5); POTASSIUM, SERUM 3.9 MMOL/L (3.5-5.3); SGOT(AST) 35 U/L (5-40); SGPT(ALT) 27 U/L (5-65); SODIUM, SERUM 134 MMOL/L (135-148); TOTAL BILIRUBIN 0.4 MG/DL (0-1.2); TOTAL PROTEIN 6.4 G/DL (6.0-8.5)
[2016-10-15 05:37] LABS: INTERNATIONAL NORMAL RATI 1.5 UNITS (-); PROTIME (NOT ORD) 18.1 SEC (12.0-14.5)
[2016-10-15 05:55] LABS: BUN (BLOOD UREA NITROGEN) 5 MG/DL (6-23); CALCIUM, SERUM 8.5 MG/DL (8.5-10.4); CHLORIDE, SERUM 105 MMOL/L (96-112); CO2 (CARBON DIOXIDE) 22 MMOL/L (24-34); CREATININE 0.35 MG/DL (0.55-1.02); GFR AFRICAN AMERICAN 132 ML/MIN (>=60); GFR NON AFRICAN AMERICAN 114 ML/MIN (>=60); GLUCOSE, SERUM 108 MG/DL (60-99); POTASSIUM, SERUM 3.9 MMOL/L (3.5-5.3); PREALBUMIN 8.2 MG/DL (17.0-43.0); SODIUM, SERUM 136 MMOL/L (135-148)
[2016-10-15 06:40] LABS: BASOPHILS 0.2 %; BASOPHILS ABSOLUTE 0.03 10/3/uL (0.0-0.16); EOSINOPHILS 1.3 %; EOSINOPHILS ABSOLUTE 0.16 10/3/uL (0.0-0.53); HEMATOCRIT 30.3 % (36.0-48.0); IMMATURE GRANULOCYTES 1.1 %; IMMATURE GRANULOCYTES ABSOLUTE 0.13 10/3/uL (0.0-0.11); LYMPHOCYTES 5.8 %; MEAN CORPUSCULAR HEMOGLOB 28.2 pg (26.0-34.0); MEAN CORPUSCULAR VOLUME 85.6 fL (80-100); MEAN PLATELET VOLUME 9.5 fL (9.2-13.0); MONOCYTES 8.4 %; MONOCYTES ABSOLUTE 1.01 10/3/uL (0.21-1.20); NEUTROPHILS 83.2 %; NEUTROPHILS ABSOLUTE 10.06 10/3/uL (2.02-8.40); PLATELET COUNT 417 10/3/uL (150-400); RBC DISTRIBUTION WIDTH 16.2 % (12.0-16.0); RED CELL COUNT 3.54 10/6/uL (4.0-5.6); WHITE BLOOD CELLS 12.1 10/3/uL (4.5-10.5)
[2016-10-15 06:43] LABS: MANUAL DIFF NO %
[2016-10-15 07:05] LABS: PHOSPHORUS, SERUM 1.7 MG/DL (2.5-4.5)
[2016-10-15 07:39] LABS: PROCALCITONIN 0.37 ng/mL (<0.5)
[2016-10-15 11:19] LABS: ALBUMIN 2.2 G/DL (3.5-5.0); SGPT(ALT) 48 U/L (5-65); TOTAL BILIRUBIN 0.5 MG/DL (0-1.2); TOTAL PROTEIN 6.3 G/DL (6.0-8.5)
[2016-10-15 11:20] LABS: ALKALINE PHOSPHATASE 138 U/L (45-117); DIRECT BILIRUBIN < 0.1 MG/DL (0.0-0.4); INDIRECT BILIRUBIN(NOT ORDER) 0.4 MG/DL (0.1-0.9); SGOT(AST) 46 U/L (5-40)
[2016-10-16 06:35] LABS: BASOPHILS 0.3 %; BASOPHILS ABSOLUTE 0.04 10/3/uL (0.0-0.16); EOSINOPHILS 0.9 %; EOSINOPHILS ABSOLUTE 0.14 10/3/uL (0.0-0.53); HEMATOCRIT 31.1 % (36.0-48.0); HEMOGLOBIN 10.3 g/dL (12.0-16.0); IMMATURE GRANULOCYTES 1.2 %; IMMATURE GRANULOCYTES ABSOLUTE 0.19 10/3/uL (0.0-0.11); LYMPHOCYTES 6.7 %; LYMPHOCYTES ABSOLUTE 1.03 10/3/uL (0.67-4.30); MEAN CORPUS HGB CONC 33.1 g/dL (32.0-36.0); MEAN CORPUSCULAR HEMOGLOB 28.1 pg (26.0-34.0); MEAN PLATELET VOLUME 9.7 fL (9.2-13.0); MONOCYTES 9.2 %; MONOCYTES ABSOLUTE 1.41 10/3/uL (0.21-1.20); NEUTROPHILS 81.7 %; NEUTROPHILS ABSOLUTE 12.57 10/3/uL (2.02-8.40); PLATELET COUNT 476 10/3/uL (150-400); RBC DISTRIBUTION WIDTH 16.4 % (12.0-16.0); RED CELL COUNT 3.66 10/6/uL (4.0-5.6); WHITE BLOOD CELLS 15.4 10/3/uL (4.5-10.5)
[2016-10-16 06:36] LABS: MANUAL DIFF NO %
[2016-10-16 06:38] LABS: CALCIUM, SERUM 8.6 MG/DL (8.5-10.4); CHLORIDE, SERUM 106 MMOL/L (96-112); CO2 (CARBON DIOXIDE) 20 MMOL/L (24-34); CREATININE 0.38 MG/DL (0.55-1.02); GFR AFRICAN AMERICAN 129 ML/MIN (>=60); GFR NON AFRICAN AMERICAN 111 ML/MIN (>=60); GLUCOSE, SERUM 123 MG/DL (60-99); POTASSIUM, SERUM 3.6 MMOL/L (3.5-5.3); SODIUM, SERUM 136 MMOL/L (135-148)
[2016-10-16 06:39] LABS: BUN (BLOOD UREA NITROGEN) 10 MG/DL (6-23); PHOSPHORUS, SERUM 2.4 MG/DL (2.5-4.5)
[2016-10-17 07:13] LABS: BASOPHILS 0.2 %; BASOPHILS ABSOLUTE 0.03 10/3/uL (0.0-0.16); EOSINOPHILS 1.8 %; EOSINOPHILS ABSOLUTE 0.26 10/3/uL (0.0-0.53); HEMOGLOBIN 9.6 g/dL (12.0-16.0); IMMATURE GRANULOCYTES 1.3 %; IMMATURE GRANULOCYTES ABSOLUTE 0.18 10/3/uL (0.0-0.11); LYMPHOCYTES 7.8 %; LYMPHOCYTES ABSOLUTE 1.11 10/3/uL (0.67-4.30); MEAN CORPUS HGB CONC 33.1 g/dL (32.0-36.0); MEAN CORPUSCULAR HEMOGLOB 28.3 pg (26.0-34.0); MEAN CORPUSCULAR VOLUME 85.5 fL (80-100); MEAN PLATELET VOLUME 9.5 fL (9.2-13.0); MONOCYTES 7.9 %; MONOCYTES ABSOLUTE 1.13 10/3/uL (0.21-1.20); NEUTROPHILS ABSOLUTE 11.54 10/3/uL (2.02-8.40); PLATELET COUNT 471 10/3/uL (150-400); RBC DISTRIBUTION WIDTH 16.2 % (12.0-16.0); RED CELL COUNT 3.39 10/6/uL (4.0-5.6); WHITE BLOOD CELLS 14.3 10/3/uL (4.5-10.5)
[2016-10-17 07:14] LABS: MANUAL DIFF NO %
[2016-10-17 07:18] LABS: INTERNATIONAL NORMAL RATI 1.8 UNITS (-); PROTIME (NOT ORD) 20.7 SEC (12.0-14.5)
[2016-10-17 07:31] LABS: BUN (BLOOD UREA NITROGEN) 11 MG/DL (6-23); CALCIUM, SERUM 8.5 MG/DL (8.5-10.4); CHLORIDE, SERUM 104 MMOL/L (96-112); CO2 (CARBON DIOXIDE) 21 MMOL/L (24-34); CREATININE 0.33 MG/DL (0.55-1.02); GFR AFRICAN AMERICAN 135 ML/MIN (>=60); GFR NON AFRICAN AMERICAN 116 ML/MIN (>=60); GLUCOSE, SERUM 101 MG/DL (60-99); PHOSPHORUS, SERUM 1.7 MG/DL (2.5-4.5); POTASSIUM, SERUM 4.4 MMOL/L (3.5-5.3); SODIUM, SERUM 134 MMOL/L (135-148)
[2016-10-17 15:34] LABS: HEMATOCRIT 28.4 % (36.0-48.0); HEMOGLOBIN 9.3 g/dL (12.0-16.0)
[2016-10-18 07:00] LABS: BASOPHILS 0.2 %; BASOPHILS ABSOLUTE 0.02 10/3/uL (0.0-0.16); EOSINOPHILS 2.1 %; EOSINOPHILS ABSOLUTE 0.24 10/3/uL (0.0-0.53); HEMATOCRIT 30.7 % (36.0-48.0); HEMOGLOBIN 10.2 g/dL (12.0-16.0); IMMATURE GRANULOCYTES 0.9 %; LYMPHOCYTES 7.3 %; LYMPHOCYTES ABSOLUTE 0.83 10/3/uL (0.67-4.30); MEAN CORPUS HGB CONC 33.2 g/dL (32.0-36.0); MEAN CORPUSCULAR HEMOGLOB 28.3 pg (26.0-34.0); MEAN PLATELET VOLUME 9.3 fL (9.2-13.0); MONOCYTES 9.3 %; MONOCYTES ABSOLUTE 1.06 10/3/uL (0.21-1.20); NEUTROPHILS 80.2 %; NEUTROPHILS ABSOLUTE 9.19 10/3/uL (2.02-8.40); PLATELET COUNT 403 10/3/uL (150-400); RBC DISTRIBUTION WIDTH 15.8 % (12.0-16.0); RED CELL COUNT 3.61 10/6/uL (4.0-5.6); WHITE BLOOD CELLS 11.4 10/3/uL (4.5-10.5)
[2016-10-18 07:01] LABS: MANUAL DIFF NO %
[2016-10-18 07:06] LABS: INTERNATIONAL NORMAL RATI 1.8 UNITS (-); PROTIME (NOT ORD) 20.7 SEC (12.0-14.5)
[2016-10-18 07:24] LABS: A/G RATIO 0.7 (0.7-1.9); ALBUMIN 2.4 G/DL (3.5-5.0); BUN (BLOOD UREA NITROGEN) 9 MG/DL (6-23); CALCIUM, SERUM 8.4 MG/DL (8.5-10.4); CHLORIDE, SERUM 104 MMOL/L (96-112); CO2 (CARBON DIOXIDE) 24 MMOL/L (24-34); CREATININE 0.51 MG/DL (0.55-1.02); GFR AFRICAN AMERICAN 117 ML/MIN (>=60); GFR NON AFRICAN AMERICAN 101 ML/MIN (>=60); GLOBULIN 3.6 G/DL (2.5-4.1); GLUCOSE, SERUM 116 MG/DL (60-99); POTASSIUM, SERUM 3.9 MMOL/L (3.5-5.3); SGOT(AST) 13 U/L (5-40); SGPT(ALT) 18 U/L (5-65); SODIUM, SERUM 133 MMOL/L (135-148); TOTAL BILIRUBIN 0.3 MG/DL (0-1.2)
[2016-10-18 07:25] LABS: ALKALINE PHOSPHATASE 90 U/L (45-117)
[2016-10-19 07:15] LABS: BASOPHILS 0.2 %; BASOPHILS ABSOLUTE 0.03 10/3/uL (0.0-0.16); EOSINOPHILS 1.3 %; EOSINOPHILS ABSOLUTE 0.17 10/3/uL (0.0-0.53); HEMATOCRIT 32.2 % (36.0-48.0); HEMOGLOBIN 10.1 g/dL (12.0-16.0); IMMATURE GRANULOCYTES 0.7 %; IMMATURE GRANULOCYTES ABSOLUTE 0.09 10/3/uL (0.0-0.11); LYMPHOCYTES 7.6 %; LYMPHOCYTES ABSOLUTE 0.97 10/3/uL (0.67-4.30); MEAN CORPUSCULAR HEMOGLOB 27.7 pg (26.0-34.0); MONOCYTES 7.6 %; MONOCYTES ABSOLUTE 0.97 10/3/uL (0.21-1.20); NEUTROPHILS 82.6 %; RBC DISTRIBUTION WIDTH 16.4 % (12.0-16.0); RED CELL COUNT 3.65 10/6/uL (4.0-5.6); WHITE BLOOD CELLS 12.7 10/3/uL (4.5-10.5)
[2016-10-19 07:17] LABS: MANUAL DIFF NO %; MEAN CORPUS HGB CONC 31.4 g/dL (32.0-36.0); MEAN CORPUSCULAR VOLUME 88.2 fL (80-100); PLATELET COUNT 238 10/3/uL (150-400)
[2016-10-19 07:26] LABS: INTERNATIONAL NORMAL RATI 1.8 UNITS (-); PROTIME (NOT ORD) 20.8 SEC (12.0-14.5)
[2016-10-19 07:39] LABS: A/G RATIO 0.8 (0.7-1.9); ALBUMIN 2.5 G/DL (3.5-5.0); ALKALINE PHOSPHATASE 101 U/L (45-117); BUN (BLOOD UREA NITROGEN) 10 MG/DL (6-23); CHLORIDE, SERUM 105 MMOL/L (96-112); CO2 (CARBON DIOXIDE) 20 MMOL/L (24-34); CREATININE 0.35 MG/DL (0.55-1.02); GFR AFRICAN AMERICAN 132 ML/MIN (>=60); GFR NON AFRICAN AMERICAN 114 ML/MIN (>=60); GLOBULIN 3.2 G/DL (2.5-4.1); GLUCOSE, SERUM 98 MG/DL (60-99); POTASSIUM, SERUM 4.4 MMOL/L (3.5-5.3); SGPT(ALT) 15 U/L (5-65); SODIUM, SERUM 138 MMOL/L (135-148); TOTAL BILIRUBIN 0.2 MG/DL (0-1.2); TOTAL PROTEIN 5.7 G/DL (6.0-8.5)
[2016-10-19 07:40] LABS: SGOT(AST) 20 U/L (5-40)
[2016-10-20 06:20] LABS: BASOPHILS 0.2 %; BASOPHILS ABSOLUTE 0.02 10/3/uL (0.0-0.16); EOSINOPHILS 1.9 %; HEMATOCRIT 29.4 % (36.0-48.0); HEMOGLOBIN 9.6 g/dL (12.0-16.0); IMMATURE GRANULOCYTES 0.6 %; IMMATURE GRANULOCYTES ABSOLUTE 0.06 10/3/uL (0.0-0.11); LYMPHOCYTES 8.2 %; LYMPHOCYTES ABSOLUTE 0.85 10/3/uL (0.67-4.30); MEAN CORPUS HGB CONC 32.7 g/dL (32.0-36.0); MEAN CORPUSCULAR HEMOGLOB 28.2 pg (26.0-34.0); MEAN CORPUSCULAR VOLUME 86.2 fL (80-100); MEAN PLATELET VOLUME 9.9 fL (9.2-13.0); MONOCYTES ABSOLUTE 0.93 10/3/uL (0.21-1.20); NEUTROPHILS 80.1 %; NEUTROPHILS ABSOLUTE 8.29 10/3/uL (2.02-8.40); RED CELL COUNT 3.41 10/6/uL (4.0-5.6); WHITE BLOOD CELLS 10.4 10/3/uL (4.5-10.5)
[2016-10-20 06:24] LABS: MANUAL DIFF NO %; PLATELET COUNT 337 10/3/uL (150-400)
[2016-10-20 06:32] LABS: BUN (BLOOD UREA NITROGEN) 8 MG/DL (6-23); CALCIUM, SERUM 8.1 MG/DL (8.5-10.4); CHLORIDE, SERUM 105 MMOL/L (96-112); CREATININE 0.35 MG/DL (0.55-1.02); GFR AFRICAN AMERICAN 132 ML/MIN (>=60); GFR NON AFRICAN AMERICAN 114 ML/MIN (>=60); POTASSIUM, SERUM 3.9 MMOL/L (3.5-5.3); SODIUM, SERUM 136 MMOL/L (135-148)
[2016-10-20 06:33] LABS: CO2 (CARBON DIOXIDE) 25 MMOL/L (24-34); GLUCOSE, SERUM 123 MG/DL (60-99)
[2016-10-21 06:19] LABS: BASOPHILS 0.2 %; BASOPHILS ABSOLUTE 0.02 10/3/uL (0.0-0.16); EOSINOPHILS 2.8 %; EOSINOPHILS ABSOLUTE 0.26 10/3/uL (0.0-0.53); HEMOGLOBIN 8.4 g/dL (12.0-16.0); IMMATURE GRANULOCYTES 0.8 %; IMMATURE GRANULOCYTES ABSOLUTE 0.07 10/3/uL (0.0-0.11); LYMPHOCYTES 9.1 %; LYMPHOCYTES ABSOLUTE 0.84 10/3/uL (0.67-4.30); MEAN CORPUS HGB CONC 32.6 g/dL (32.0-36.0); MEAN PLATELET VOLUME 10.2 fL (9.2-13.0); MONOCYTES 9.2 %; MONOCYTES ABSOLUTE 0.85 10/3/uL (0.21-1.20); NEUTROPHILS 77.9 %; NEUTROPHILS ABSOLUTE 7.18 10/3/uL (2.02-8.40); PLATELET COUNT 307 10/3/uL (150-400); RBC DISTRIBUTION WIDTH 16.2 % (12.0-16.0); WHITE BLOOD CELLS 9.2 10/3/uL (4.5-10.5)
[2016-10-21 06:20] LABS: HEMATOCRIT 25.8 % (36.0-48.0); MANUAL DIFF NO %
[2016-10-21 06:22] LABS: A/G RATIO 0.6 (0.7-1.9); BUN (BLOOD UREA NITROGEN) 7 MG/DL (6-23); CALCIUM, SERUM 7.9 MG/DL (8.5-10.4); CHLORIDE, SERUM 105 MMOL/L (96-112); CO2 (CARBON DIOXIDE) 24 MMOL/L (24-34); CREATININE 0.35 MG/DL (0.55-1.02); GFR AFRICAN AMERICAN 132 ML/MIN (>=60); GFR NON AFRICAN AMERICAN 114 ML/MIN (>=60); GLOBULIN 3.1 G/DL (2.5-4.1); POTASSIUM, SERUM 4.2 MMOL/L (3.5-5.3); SGOT(AST) 15 U/L (5-40); SGPT(ALT) 12 U/L (5-65); SODIUM, SERUM 135 MMOL/L (135-148); TOTAL BILIRUBIN 0.3 MG/DL (0-1.2); TOTAL PROTEIN 5.1 G/DL (6.0-8.5)
[2016-10-21 06:23] LABS: ALKALINE PHOSPHATASE 77 U/L (45-117); GLUCOSE, SERUM 91 MG/DL (60-99)
[2016-10-22 06:07] LABS: BASOPHILS 0.3 %; BASOPHILS ABSOLUTE 0.02 10/3/uL (0.0-0.16); EOSINOPHILS 2.2 %; EOSINOPHILS ABSOLUTE 0.16 10/3/uL (0.0-0.53); HEMOGLOBIN 9.4 g/dL (12.0-16.0); IMMATURE GRANULOCYTES 0.4 %; IMMATURE GRANULOCYTES ABSOLUTE 0.03 10/3/uL (0.0-0.11); LYMPHOCYTES 10.1 %; LYMPHOCYTES ABSOLUTE 0.75 10/3/uL (0.67-4.30); MEAN CORPUS HGB CONC 32.1 g/dL (32.0-36.0); MEAN CORPUSCULAR HEMOGLOB 27.7 pg (26.0-34.0); MEAN CORPUSCULAR VOLUME 86.4 fL (80-100); MEAN PLATELET VOLUME 9.9 fL (9.2-13.0); MONOCYTES ABSOLUTE 0.52 10/3/uL (0.21-1.20); NEUTROPHILS ABSOLUTE 5.94 10/3/uL (2.02-8.40); PLATELET COUNT 344 10/3/uL (150-400); RED CELL COUNT 3.39 10/6/uL (4.0-5.6); WHITE BLOOD CELLS 7.4 10/3/uL (4.5-10.5)
[2016-10-22 06:08] LABS: HEMATOCRIT 29.3 % (36.0-48.0); MANUAL DIFF NO %
[2016-10-22 06:21] LABS: A/G RATIO 0.7 (0.7-1.9); ALBUMIN 2.3 G/DL (3.5-5.0); BUN (BLOOD UREA NITROGEN) 4 MG/DL (6-23); CALCIUM, SERUM 8.2 MG/DL (8.5-10.4); CHLORIDE, SERUM 106 MMOL/L (96-112); CO2 (CARBON DIOXIDE) 24 MMOL/L (24-34); CREATININE 0.39 MG/DL (0.55-1.02); GFR AFRICAN AMERICAN 128 ML/MIN (>=60); GFR NON AFRICAN AMERICAN 110 ML/MIN (>=60); GLOBULIN 3.4 G/DL (2.5-4.1); GLUCOSE, SERUM 101 MG/DL (60-99); POTASSIUM, SERUM 3.8 MMOL/L (3.5-5.3); SGOT(AST) 17 U/L (5-40); SGPT(ALT) 13 U/L (5-65); SODIUM, SERUM 137 MMOL/L (135-148); TOTAL BILIRUBIN 0.3 MG/DL (0-1.2); TOTAL PROTEIN 5.7 G/DL (6.0-8.5)
[2016-10-22 06:22] LABS: ALKALINE PHOSPHATASE 95 U/L (45-117)
[2016-10-23 06:06] LABS: BASOPHILS 0.2 %; BASOPHILS ABSOLUTE 0.01 10/3/uL (0.0-0.16); EOSINOPHILS 2.4 %; EOSINOPHILS ABSOLUTE 0.14 10/3/uL (0.0-0.53); IMMATURE GRANULOCYTES 0.3 %; IMMATURE GRANULOCYTES ABSOLUTE 0.02 10/3/uL (0.0-0.11); LYMPHOCYTES 12.3 %; LYMPHOCYTES ABSOLUTE 0.72 10/3/uL (0.67-4.30); MEAN CORPUS HGB CONC 33.3 g/dL (32.0-36.0); MEAN CORPUSCULAR HEMOGLOB 28.4 pg (26.0-34.0); MEAN CORPUSCULAR VOLUME 85.1 fL (80-100); MEAN PLATELET VOLUME 9.9 fL (9.2-13.0); MONOCYTES 9.6 %; MONOCYTES ABSOLUTE 0.56 10/3/uL (0.21-1.20); NEUTROPHILS 75.2 %; NEUTROPHILS ABSOLUTE 4.39 10/3/uL (2.02-8.40); PLATELET COUNT 367 10/3/uL (150-400); RED CELL COUNT 2.82 10/6/uL (4.0-5.6); WHITE BLOOD CELLS 5.8 10/3/uL (4.5-10.5)
[2016-10-23 06:09] LABS: MANUAL DIFF NO %
[2016-10-23 06:22] LABS: A/G RATIO 0.6 (0.7-1.9); ALKALINE PHOSPHATASE 84 U/L (45-117); BUN (BLOOD UREA NITROGEN) 3 MG/DL (6-23); CALCIUM, SERUM 8.3 MG/DL (8.5-10.4); CHLORIDE, SERUM 108 MMOL/L (96-112); CO2 (CARBON DIOXIDE) 24 MMOL/L (24-34); CREATININE 0.34 MG/DL (0.55-1.02); GFR AFRICAN AMERICAN 134 ML/MIN (>=60); GFR NON AFRICAN AMERICAN 115 ML/MIN (>=60); GLOBULIN 3.2 G/DL (2.5-4.1); GLUCOSE, SERUM 90 MG/DL (60-99); POTASSIUM, SERUM 3.8 MMOL/L (3.5-5.3); SGPT(ALT) 13 U/L (5-65); SODIUM, SERUM 139 MMOL/L (135-148); TOTAL BILIRUBIN 0.1 MG/DL (0-1.2); TOTAL PROTEIN 5.2 G/DL (6.0-8.5)
[2016-10-23 06:28] LABS: PHOSPHORUS, SERUM 2.5 MG/DL (2.5-4.5); SGOT(AST) 19 U/L (5-40)
[2016-10-24 06:42] LABS: BASOPHILS 0.2 %; BASOPHILS ABSOLUTE 0.01 10/3/uL (0.0-0.16); EOSINOPHILS 3.6 %; EOSINOPHILS ABSOLUTE 0.21 10/3/uL (0.0-0.53); HEMATOCRIT 23.7 % (36.0-48.0); HEMOGLOBIN 7.7 g/dL (12.0-16.0); IMMATURE GRANULOCYTES 0.2 %; IMMATURE GRANULOCYTES ABSOLUTE 0.01 10/3/uL (0.0-0.11); LYMPHOCYTES 11.4 %; LYMPHOCYTES ABSOLUTE 0.66 10/3/uL (0.67-4.30); MEAN CORPUS HGB CONC 32.5 g/dL (32.0-36.0); MEAN CORPUSCULAR VOLUME 86.2 fL (80-100); MEAN PLATELET VOLUME 9.1 fL (9.2-13.0); MONOCYTES 8.8 %; MONOCYTES ABSOLUTE 0.51 10/3/uL (0.21-1.20); NEUTROPHILS 75.8 %; PLATELET COUNT 386 10/3/uL (150-400); RBC DISTRIBUTION WIDTH 15.9 % (12.0-16.0); RED CELL COUNT 2.75 10/6/uL (4.0-5.6); WHITE BLOOD CELLS 5.8 10/3/uL (4.5-10.5)
[2016-10-24 06:43] LABS: MANUAL DIFF NO %
[2016-10-24 06:53] LABS: BUN (BLOOD UREA NITROGEN) 3 MG/DL (6-23); CALCIUM, SERUM 8.2 MG/DL (8.5-10.4); CHLORIDE, SERUM 109 MMOL/L (96-112); CO2 (CARBON DIOXIDE) 25 MMOL/L (24-34); CREATININE 0.28 MG/DL (0.55-1.02); GFR AFRICAN AMERICAN 142 ML/MIN (>=60); GFR NON AFRICAN AMERICAN 123 ML/MIN (>=60); GLUCOSE, SERUM 88 MG/DL (60-99); POTASSIUM, SERUM 3.7 MMOL/L (3.5-5.3); SODIUM, SERUM 142 MMOL/L (135-148)
[2016-10-25 07:09] LABS: BASOPHILS 0.2 %; BASOPHILS ABSOLUTE 0.01 10/3/uL (0.0-0.16); EOSINOPHILS 3.4 %; EOSINOPHILS ABSOLUTE 0.14 10/3/uL (0.0-0.53); HEMATOCRIT 23.1 % (36.0-48.0); HEMOGLOBIN 7.5 g/dL (12.0-16.0); LYMPHOCYTES 18.3 %; LYMPHOCYTES ABSOLUTE 0.75 10/3/uL (0.67-4.30); MEAN CORPUS HGB CONC 32.5 g/dL (32.0-36.0); MEAN CORPUSCULAR VOLUME 86.2 fL (80-100); MEAN PLATELET VOLUME 9.5 fL (9.2-13.0); MONOCYTES 9.3 %; MONOCYTES ABSOLUTE 0.38 10/3/uL (0.21-1.20); NEUTROPHILS 68.8 %; NEUTROPHILS ABSOLUTE 2.82 10/3/uL (2.02-8.40); PLATELET COUNT 360 10/3/uL (150-400); RED CELL COUNT 2.68 10/6/uL (4.0-5.6); WHITE BLOOD CELLS 4.1 10/3/uL (4.5-10.5)
[2016-10-25 07:10] LABS: MANUAL DIFF NO %
[2016-10-25 07:23] LABS: BUN (BLOOD UREA NITROGEN) 3 MG/DL (6-23); CALCIUM, SERUM 8.3 MG/DL (8.5-10.4); CHLORIDE, SERUM 107 MMOL/L (96-112); CO2 (CARBON DIOXIDE) 28 MMOL/L (24-34); CREATININE 0.25 MG/DL (0.55-1.02); GFR AFRICAN AMERICAN 148 ML/MIN (>=60); GFR NON AFRICAN AMERICAN 128 ML/MIN (>=60); GLUCOSE, SERUM 101 MG/DL (60-99); PHOSPHORUS, SERUM 3.2 MG/DL (2.5-4.5); POTASSIUM, SERUM 4.2 MMOL/L (3.5-5.3); SODIUM, SERUM 139 MMOL/L (135-148)
[2016-10-26 09:38] LABS: BASOPHILS 0.7 %; BASOPHILS ABSOLUTE 0.04 10/3/uL (0.0-0.16); EOSINOPHILS 1.6 %; EOSINOPHILS ABSOLUTE 0.09 10/3/uL (0.0-0.53); IMMATURE GRANULOCYTES 0.2 %; IMMATURE GRANULOCYTES ABSOLUTE 0.01 10/3/uL (0.0-0.11); LYMPHOCYTES 9.3 %; LYMPHOCYTES ABSOLUTE 0.52 10/3/uL (0.67-4.30); MEAN CORPUS HGB CONC 32.6 g/dL (32.0-36.0); MEAN CORPUSCULAR HEMOGLOB 28.1 pg (26.0-34.0); MEAN CORPUSCULAR VOLUME 86.1 fL (80-100); MEAN PLATELET VOLUME 9.4 fL (9.2-13.0); MONOCYTES 8.3 %; MONOCYTES ABSOLUTE 0.46 10/3/uL (0.21-1.20); NEUTROPHILS 79.9 %; NEUTROPHILS ABSOLUTE 4.45 10/3/uL (2.02-8.40); PLATELET COUNT 443 10/3/uL (150-400); WHITE BLOOD CELLS 5.6 10/3/uL (4.5-10.5)
[2016-10-26 09:41] LABS: HEMATOCRIT 28.5 % (36.0-48.0); HEMOGLOBIN 9.3 g/dL (12.0-16.0); MANUAL DIFF NO %; RED CELL COUNT 3.31 10/6/uL (4.0-5.6)
[2016-10-26 09:52] LABS: BUN (BLOOD UREA NITROGEN) 3 MG/DL (6-23); CALCIUM, SERUM 8.7 MG/DL (8.5-10.4); CHLORIDE, SERUM 103 MMOL/L (96-112); CO2 (CARBON DIOXIDE) 27 MMOL/L (24-34); CREATININE 0.37 MG/DL (0.55-1.02); GFR AFRICAN AMERICAN 130 ML/MIN (>=60); GFR NON AFRICAN AMERICAN 112 ML/MIN (>=60); GLUCOSE, SERUM 117 MG/DL (60-99); SODIUM, SERUM 138 MMOL/L (135-148)
[2016-10-26] MEDS ORDERED: PEP20 PO (12:00)
[2016-10-26] MEDS ORDERED: BENTYL20 PO (12:01)
[2016-10-26] MEDS ORDERED: VANCO (12:02)
[2016-10-26] MEDS ORDERED: FLORASTOR250 MG PO (12:03)
[2016-10-26] MEDS ORDERED: Proair Hfa (12:11)
[2016-10-26] MEDS ORDERED: X25 PO (12:12)
== END 2016-10-26 18:11 | disposition home health service (06) | DRG 371 ==
LOC: ER 08:04 → MIC 09:07 → 5SO 10-16 14:57
PROVIDERS: Hospitalist; Internal Medicine; Internal Medicine Critical Care Medicine; Internal Medicine Gastroenterology; Internal Medicine Pulmonary Disease; Nurse Practitioner Family; Pediatrics
PROC: 30233N1 Transfusion of Nonautologous Red Blood Cells into Peripheral Vein, Percutaneous Approach (ICD-10-PCS; principal; 2016-10-11)
PROC: 30233M1 Transfusion of Nonautologous Plasma Cryoprecipitate into Peripheral Vein, Percutaneous Approach (ICD-10-PCS; 2016-10-11)
PROC: 02HV33Z Insertion of Infusion Device into Superior Vena Cava, Percutaneous Approach (ICD-10-PCS; 2016-10-14)
PROC: 4A02X4A Measurement of Cardiac Electrical Activity, Guidance, External Approach (ICD-10-PCS; 2016-10-14)
DX: A04.7 Enterocolitis due to Clostridium difficile (principal); E43 Unspecified severe protein-calorie malnutrition; K55.029 Acute infarction of small intestine, extent unspecified; N17.9 Acute kidney failure, unspecified; J84.10 Pulmonary fibrosis, unspecified; D62 Acute posthemorrhagic anemia; E86.0 Dehydration; Z68.1 Body mass index [BMI] 19.9 or less, adult; E86.1 Hypovolemia; E87.6 Hypokalemia; K21.9 Gastro-esophageal reflux disease without esophagitis; F32.9 Major depressive disorder, single episode, unspecified; F41.9 Anxiety disorder, unspecified; I10 Essential (primary) hypertension; I25.10 Atherosclerotic heart disease of native coronary artery without angina pectoris; G89.4 Chronic pain syndrome; Z79.899 Other long term (current) drug therapy; Z87.891 Personal history of nicotine dependence; Z91.81 History of falling
CPT/HCPCS: 36415; 36430; 36569; 71010; 74000; 74174; 74176; 74178; 80048; 80053; 80069; 80076; 80202; 81001; 82533; 82550; 82553; 82962; 83605; 83690; 83735; 84100; 84134; 84145; 84439; 84443; 84484; 85014; 85018; 85025; 85610; 85652; 85730; 86140; 86850; 86900; 86901; 86920; 87040; 87045; 87046; 87046-59; 87328; 87329; 87493; 87493-59; 87641; 87899; 87899-59; 89055; 93005; 93975; 94640; 96365; 96366; 96368; 96375; 97110-GP; 97116-GP; 97161-GP; 97530-GP; 99291; A9270-GY; C1751; C9113; G8978-CK-GP; G8979-CJ-GP; J0360; J0692; J1170; J1750; J2405; J2543; J2550; J3370; J3475; P9016; P9059; Q9967

== ENCOUNTER 2016-10-29 09:44 | Inpatient (IN) | payer MEDICARE, OTHER ==
--- NOTE | ~2016-10-29 | CN ---
Consultation Report [facility] [address] [place]. [address] NAME: WILBUR FU : 52 STATUS : ADM IN PAT#: [id number] AGE: 66 ADM/REG DATE : 10/29/16 MR#: [id number] REPORT SERV DATE: 10/30/16 DICTATED BY: SONU AYOUB DATE: 10/30/16 REPORT STATUS : Draft TRANSCRIBED BY: MODL DATE: 10/30/16 PSYCHIATRIC CONSULTATION DATE OF CONSULTATION: 10/30/2016 I reviewed this patient's current and old medical records. I discussed her status with her daughter, Krystle. HISTORY OF PRESENT ILLNESS: She was admitted with nausea and vomiting. She reportedly was overusing prescribed benzos and opiates. The patient denied doing this. PAST PSYCHIATRIC HISTORY: The patient said she started to use Xanax and opiates after her 's about seven years ago. Her daughter said that she was using and abusing pills prior to his . The patient said she was just using Xanax 0.5 mg b.i.d., as prescribed and hydrocodone as prescribed prior to this admission. I noticed that during a recent previous admission, she was prescribed Remeron, but the patient has no memory for taking this medication and there is no documentation as to how useful it was. SOCIAL HISTORY: She lives at [facility]. She has three children and multiple grandchildren, who live in the local area. 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 FAMILY HISTORY: Her father committed suicide when he was in his 60s. MENTAL STATUS: She volunteered no information. She responded to my questions appropriately giving minimal information. She denied substance abuse, but she said she was willing to try to stop all benzos and opiates. She made minimal eye contact during this examination. She tended to fall asleep as I was talking to her. She appeared to be lethargic and weak. Her mood was perhaps mildly anxious. Her affect was constricted in range. Her thinking was logical. She was oriented to "October"-"the "-"2016." DIAGNOSES: 1. Opiate dependence. 2. Benzodiazepine dependence. 3. Possible mild underlying anxiety disorder. RECOMMENDATIONS: I discussed the options with Dr. Isaacs, who is her hospitalist. Hopefully, we can taper her off opiates and benzodiazepines. I will start her on Remeron soluble tablet 15 mg p.o. at bedtime. I will follow up. REYNALDO/THUY Sonu Consultation Report [address] [place]. [address] NAME: WILBUR FU : 52 STATUS : ADM IN PAT#: [id number] AGE: 66 ADM/REG DATE : 10/29/16 MR#: [id number] REPORT SERV DATE: 10/30/16 DICTATED BY: SONU AYOUB DATE: 10/30/16 REPORT STATUS : Draft TRANSCRIBED BY: THUY DATE: 10/30/16 Lynsey Ayoub / [id number] CC: DO Valentín Newman M.D.
--- NOTE | ~2016-10-29 | HP ---
History And Physical [place] [id number] [place]. [address] NAME: WILBUR FU : 52 STATUS : ADM IN [facility]#: [id number] AGE: 66 ADM/REG DATE : 10/29/16 MR#: [id number] REPORT SERV DATE: 10/29/16 DICTATED BY: TOMAS CLAIRE DATE: 10/29/16 REPORT STATUS : Draft TRANSCRIBED BY: MODL DATE: 10/29/16 DATE OF ADMISSION: 10/29/2016 REASON FOR ADMISSION: Going to be nausea, apparently the patient tried to take 20 of her Xanax pills and possibly 20 of her Lortab pills that were prescribed in multi day distribution and she took these in three days after recent discharge on 10/26/2016. HISTORY OF PRESENT ILLNESS: This is a 66-year-old female, who appears much older than her stated age. She has had multiple admissions and readmissions recently, for which she was admitted on 10/02/2016 and discharged on 10/08/2016 and readmitted on 10/11/2016, to the critical care unit for hemodynamically unstable GI bleed. Then I saw her and I had recommended her to get further rehabilitation and nursing surveillance at a facility, the patient adamantly refused on 10/26/2016 and as a result, she is back here today. She has a known history of frequent falls, aspiration pneumonia, chronic pain, narcotic and benzodiazepine likely dependence, recent history of bright red blood per rectum, right-sided colitis and diagnosed with C. difficile, unclear the patient is even taking her p.o. vancomycin. She was evaluated by Surgery last admission and GI as well at that time. They just wanted to perform a conservative approach given her extreme debility and not being an adequate surgical candidate at that time. The patient has had failure to thrive with malnutrition and was given Megace. The patient comes in with nausea and vomiting. She claimed to have some melena. We did a guaiac and it was faintly positive. It looks brown to be expected with active potential C difficile to have some mild GI occult bleed. The patient did endorse some nausea, possible retching with scant hematemesis. Her hemoglobin is stable from last admission. Unclear if the patient is taking her medications. She now seems more amenable to going to a facility. The patient endorses positive chills, no fevers, positive nausea, positive vomiting as described, positive diarrhea, even some pleuritic chest pain, more right and left sternal border, it does worsen with inspiration, some pending cardiac enzymes. The family is at bedside. They were very concerned about the patient very upset at her decision to almost against medical advice be discharged as was recommended to go to a facility, and the patient adamantly refused and went rather home. She is clearly not able to take care of herself now. PAST MEDICAL HISTORY: See above. ALLERGIES: APPARENTLY ARE NSAIDS. SEE REST OF LIST INCLUDING IMITREX. REVIEW OF SYSTEMS: 10-point review of systems done, see HPI. Otherwise, negative. History And Physical [address] [place]. [address] NAME: WILBUR FU : 52 STATUS : ADM IN [facility]#: [id number] AGE: 66 ADM/REG DATE : 10/29/16 MR#: [id number] REPORT SERV DATE: 10/29/16 DICTATED BY: TOMAS CLAIRE DATE: 10/29/16 REPORT STATUS : Draft TRANSCRIBED BY: THUY DATE: 10/29/16 FAMILY HISTORY: Hypertension at least one parent. SOCIAL HISTORY: She lives at home. Denies alcohol, tobacco, or drug use. Does have significant extensive secondhand smoking exposure though in her life. OBJECTIVE: VITAL SIGNS: 104 systolic over 43, 98.1 temp, 91 pulse, 15 respirations, 98% on room air. GENERAL: Guarded. She is cachetic. HEENT: PERRLA. No scleral icterus. CARDIOVASCULAR: Regular rate and rhythm. No murmur at this time. RESPIRATORY: Decreased breath sounds bibasilarly. ABDOMEN: Some mild tenderness to palpation, more periumbilical. No peritoneal signs. No rebound tenderness. EXTREMITIES: Showed no edema. No ecchymosis. NEURO: GCS 15. A and O x4/4. PSYCHIATRIC: She seems reasonable. She seems anxious. She is negotiating for pain medications to me. LABORATORY DATA: White count 7.3, hemoglobin 9.4, her last hemoglobin was 9.3, so she is actually 0.1 above, which she was discharged for hemoglobin. Platelets 466,000. 4 potassium, 139 sodium, 26 bicarb, 0.52 creatinine, 11 BUN. INR 1.1. Magnesium of 1.8. T- bilirubin 0.3. Alkaline phosphatase 381. ALT 40. ASSESSMENT/PLAN: 1. Consideration for polysubstance abuse with zealous use of apparently taking all of her Xanax and [place] that she was prescribed in a much shorter duration than prescribed. 2. Nausea and vomiting. Need to rule out ileus given her narcotic use. 3. Noncompliance. 4. Failure to thrive. 5. Recent Clostridium difficile with critical care admission for hemodynamically unstable GI bleed, was not a surgical candidate at that time. 6. Possible oppositional personality disorder. We will have Psychiatry evaluate. PLAN: We will go ahead and admit this patient. We will continue her p.o. vancomycin and add IV Flagyl. I do not know her current CT anatomy. She will be called if there is any pathology. If she has any ileus, we will escalate to an NG tube immediately and will likely have to get the vancomycin enema; however, she is not terribly septic at this point in time. We will give a liter of normal saline bolus. I cannot cut her zealous use of narcotics down to drastically given withdrawal risk, especially benzodiazepine-associated seizure risk, so placed her on Ativan p.r.n., Dilaudid p.r.n. low-dose, Protonix 40 IV daily, and she may have endorsed a possible Danna-Patterson small tear, rule out PUD; however, do not want to interfere with her C difficile treatment. Ask Psychiatry to please evaluate regarding the etiology behind her repeated readmissions and noncompliant behavior. Regarding her pleuritic chest pain, she will need to get an EKG, and I will cycle her cardiac enzymes to start. See rest of my orders. All questions were answered. It took well over 60 minutes to do. Certainly, needs to go to a facility at this point. History And Physical [address] [place]. [address] NAME: WILBUR FU : 52 STATUS : ADM IN [facility]#: [id number] AGE: 66 ADM/REG DATE : 10/29/16 MR#: [id number] REPORT SERV DATE: 10/29/16 DICTATED BY: TOMAS CLAIRE DATE: 10/29/16 REPORT STATUS : Draft TRANSCRIBED BY: MODL DATE: 10/29/16 WST/MODL Tomas Claire DO / [id number] CC: DO Valentín Newman M.D.
--- NOTE | ~2016-10-29 | CN ---
Consultation Report [facility] [address] [place]. [address] NAME: WILBUR DE LA VEGA : 52 STATUS : ADM IN PAT#: [id number] AGE: 66 ADM/REG DATE : 10/29/16 MR#: [id number] REPORT SERV DATE: 10/31/16 DICTATED BY: VERONICA MEHTA DATE: 10/31/16 REPORT STATUS : Draft TRANSCRIBED BY: MODL DATE: 10/31/16 GI CONSULTATION DATE OF CONSULTATION: 10/31/2016 REASON FOR CONSULTATION: Evaluation and management of nausea, vomiting, "melena." HISTORY OF PRESENT ILLNESS: Ms. De La Vega is a 66-year-old female patient, who is known to Dr. Delgado Elizondo in the outpatient setting, who just recently discharged from [facility] on 10/26/2016 after a lengthy hospitalization. She was here from 10/02 until 10/26 for colitis. She was tested and found to be Hemoccult positive as well as C diff positive. She was discharged on vancomycin. During her stay, she had had an abnormal mesenteric ultrasound, however, a normal CTA of abdomen and pelvis. Hematochezia had resolved. She was on a Dobbhoff tube for a period of time, she did not tolerate that well and requested it to be removed. She was dependent upon morphine during the entire hospitalization as well as requiring Phenergan. She was discharged with Xanax and Lortab, and by review of records, it appears that she tried to take around 20 of her Xanax and also possibly 20 of her Lortab pills within three days of being discharged. She states to me that she came in for abdominal pain and diarrhea. She states over the last three days that her diarrhea has picked up and is black and tarry. She has had nausea with vomiting that appeared to be coffee-ground in description from her. She has diffuse abdominal tenderness, which is similar to her previous hospitalization. She had a CT scan on admission, which was negative. C diff was retested and found to be positive. She is on appropriate treatment with vancomycin. She would likely need a very prolonged tapered course for this. I have discussed with her possibility of an upper endoscopy, which she refuses to undergo at this time, stating "I do not want to go through that again." Her last endoscopy with Dr. Elizondo was in 10/2015, this was done for nausea and vomiting. Findings on that exam showed a normal duodenum, entirely examined stomach was normal, cardia and gastric fundus were normal, and the esophagus was normal. I have discussed with the patient presently we will start her back on clear liquid diet and advance as tolerated. Per review of hospitalist note, they have discussed TPN, which would most likely benefit the patient as she did poorly with the Dobbhoff tube last hospitalization. PAST MEDICAL HISTORY: Positive for coronary artery disease with a previous ND; COPD; aspiration pneumonia; interstitial lung disease; bronchiectasis; esophageal dysmotility; chronic anxiety with history of long-term benzodiazepine use; chronic pain syndrome with chronic pain medications; hypertension; recurrent falls, felt secondary to medication overuse; generalized weakness; severe protein-calorie malnutrition; chronic iron deficiency anemia; mitral valve prolapse; restless legs syndrome; GERD; peptic ulcer disease; osteoarthritis; osteoporosis; degenerative disk disease; C diff. PAST SURGICAL HISTORY: Includes appendectomy, cholecystectomy, abdominal hysterectomy, wrist surgery, left leg and hip ORIF. Consultation Report [address] [place]. [address] NAME: WILBUR DE LA VEGA : 52 STATUS : ADM IN PAT#: [id number] AGE: 66 ADM/REG DATE : 10/29/16 MR#: [id number] REPORT SERV DATE: 10/31/16 DICTATED BY: VERONICA MEHTA DATE: 10/31/16 REPORT STATUS : Draft TRANSCRIBED BY: THUY DATE: 10/31/16 SOCIAL HISTORY: She still lives independently and was discussed rehab last hospitalization, which the patient refused. She does not use any alcohol, tobacco, or illicits. FAMILY HISTORY: Noncontributory from a GI standpoint. ALLERGIES: LISTED TO NSAIDS, ASPIRIN, IBUPROFEN, AND IMITREX. HOME MEDICATIONS: ProAir HFA, albuterol, Xanax, Bentyl, Pepcid, [place], Megace, Lopressor, Remeron, Dulera, Theragran, Florastor, Spiriva, vancomycin. REVIEW OF SYSTEMS: A 10-point review of systems has been obtained with pertinent positives being addressed in the history of present illness. PERTINENT LABORATORY DATA: Sodium 136, potassium 3.7, BUN is 1, creatinine 0.35. White count 8.7, hemoglobin 10, hematocrit 30.2, platelet count 289. INR of 1.1. PHYSICAL EXAMINATION: VITAL SIGNS: Temperature 98.6, pulse 93, respirations of 18, blood pressure 139/62. GENERAL APPEARANCE: Reveals an alert, but frail and thin, cachectic-appearing female, resting in bed. She awakens to name. She is oriented x3. HEAD, EARS, EYES, NOSE, AND THROAT: Anicteric. Pupils equal, round, reactive to light and accommodation. Normocephalic and atraumatic. NECK: Supple. No JVD. LUNGS: Diminished bilaterally. Normal respiratory effort exhibited. Noted barrel chest. CARDIOVASCULAR SYSTEM: Regular rate and rhythm. S1 and S2. No murmurs, rubs, gallops, S3, or S4 appreciated. ABDOMEN: Soft, nondistended, mild tenderness to palpation diffusely without rebound or guarding. No organomegaly appreciated. Active bowel sounds auscultated. EXTREMITIES: No edema. Normal distal pulses. SKIN: Warm, dry, and intact. ASSESSMENT: 1. Nausea with vomiting with "coffee-ground" emesis, question peptic ulcer disease, esophagitis, duodenitis. 2. Melena. 3. Diarrhea with Clostridium difficile positive. 4. Severe protein-calorie malnutrition and failure to thrive. 5. Anemia, acute on chronic. 6. Questionable polysubstance abuse. 7. Medical noncompliance. PLAN: 1. H2 inhibitor. 2. Clears with Ensure Clear. Consultation Report [address] [place]. [address] NAME: WILBUR DE LA VEGA : 52 STATUS : ADM IN [facility]#: [id number] AGE: 66 ADM/REG DATE : 10/29/16 MR#: [id number] REPORT SERV DATE: 10/31/16 DICTATED BY: VERONICA MEHTA DATE: 10/31/16 REPORT STATUS : Draft TRANSCRIBED BY: THUY DATE: 10/31/16 3. TPN would be best option for this patient as she had a Dobbhoff tube last admission which she tolerated poorly. 4. Monitor H and H. 5. No plans for endoscopy at this time as the patient refuses. CAIT/THUY [place] MAHIN Polanco / [id number] CC: Lynsey Cedeño M.D.
--- NOTE | ~2016-10-29 | DS ---
Discharge Summary [facility] [address] [place]. [address] NAME: WILBUR FU : 52 STATUS : ADM IN [facility]#: [id number] AGE: 66 ADM/REG DATE : 10/29/16 MR#: [id number] REPORT SERV DATE: 11/07/16 DICTATED BY: TALISHA VASQUEZ DATE: 11/06/16 REPORT STATUS : Draft TRANSCRIBED BY: MODL DATE: 11/06/16 ADMISSION DATE: 10/29/2016 DISCHARGE DATE: Date of transfer to inpatient rehab is 11/06/2016. CONDITION ON DISCHARGE: Stable. DISPOSITION: Discharge to [facility]. DIAGNOSES ON DISCHARGE: 1. Subacute Clostridium difficile colitis for which the patient is on tapering vancomycin - now the patient is on vancomycin 125 mg p.o. t.i.d. for the next few days and then it will be tapered as written on the prescription. 2. Severe malnutrition and severe cachexia secondary to chronic Clostridium difficile colitis, malabsorption, malnutrition from anorexia and probably other psychiatric disorders and drug dependency too. 3. Chronic narcotic dependency - the patient until almost yesterday was requiring Dilaudid every few hours intravenously for pain that she was complaining of in the belly. 4. CT scan of the abdomen only showed colitis, but the amount of pain that the patient had was out of proportion to what was clinically seen. 5. Chronic narcotic dependency, but now the patient is off the IV Dilaudid and only is on Percocet 7.5/325 every four hours p.r.n. for abdominal pain. 6. For the severe malnutrition and cachexia, the patient has been started on TPN at this time. 7. Pretty much other than the above issues which she was admitted for, all the other issues that are chronic remained the same. Her chronic medical issues also include coronary artery disease with previous myocardial infarctions, which are stable at this time; chronic obstructive pulmonary disease, which is stable; history of recurrent aspiration pneumonia, which is also stable; history of esophageal dysmotility probably contributing to her chronic anxiety also and chronic pain syndrome as mentioned above; hypertension; recurrent falls; generalized weakness; chronic multiple vitamin deficiencies and iron deficiency; history of mitral valve prolapse, restless legs syndrome; osteoarthritis; osteoporosis; and degenerative disk disease. Also, at a point at this time, the patient also had GI bleed for which she was evaluated by GI. GI consulted on the patient on 10/31/2016. But at this time, no intervention was planned other than putting her on an H2 inhibitor and TPN, which was also suggested by GI. H and H were monitored and since her H and H were stable, no endoscopy was planned for this time and there was no more clinically visible blood either. The patient hence is being transferred to inpatient rehab as she is too weak to be able to take care of self. She will be going to the rehab on the following medications: 1. TPN. Discharge Summary [facility] [address] [place]. [address] NAME: WILBUR FU : 52 STATUS : ADM IN [facility]#: [id number] AGE: 66 ADM/REG DATE : 10/29/16 MR#: [id number] REPORT SERV DATE: 11/07/16 DICTATED BY: TALISHA VASQUEZ DATE: 11/06/16 REPORT STATUS : Draft TRANSCRIBED BY: THUY DATE: 11/06/16 2. Percocet 7.5/325 one p.o. q.6 hours p.r.n. for abdominal pain. 3. Xanax 0.25 mg p.o. b.i.d. p.r.n. for anxiety. 4. For her COPD, she will continue her Dulera two puffs once a day and Spiriva once a day as prescribed. 5. For her depression and anorexia, she will continue mirtazapine or Remeron 15 mg at bedtime and Megace 400 mg once daily. 6. For her high blood pressure, she will continue Lopressor 25 mg p.o. b.i.d. 7. For her abdominal issues, she will continue Pepcid 20 mg p.o. b.i.d. p.r.n., dicyclomine 20 mg p.o. four times a day, and Florastor 250 mg p.o. b.i.d. She will definitely continue vancomycin too to finish up her treatment for treating her C. diff colitis. In addition to this, she will also take albuterol or ProAir HFA one puff every four hours p.r.n. only. I have tried to bring up the Palliative Care on this patient, but at this time, she does not want any Palliative Care, but states that she does not want to be resuscitated, hence, the patient's code status however is a DNR and a POLST form has been filled out per patient's wishes and put on chart. I have spent about 35 to 40 minutes in coordinating discharge care of this patient. The most recent lab results I have on this patient include a CBC that shows a WBC of 9.6, hemoglobin 9, hematocrit 27.7, and platelet count of 330. Electrolyte profile shows normal electrolytes, BUN is 25, and creatinine is 0.5. Her pre-albumin previously had come back extremely low and it was 11. Normal is between 17 and 43, 11 definitely suggest severe malnutrition and cachexia. Hence, the need for TPN. So, I have spent about 40 minutes in coordinating discharge care of this patient including [id number] encounter and we will be discharging her to inpatient rehab. DICTATED BY: Lynsey Cedeño/THUY Talisha Vasquez M.D. / [id number] CC: Lynsey Cedeño M.D.
[~2016-10-29 09:44] MED LIST changes: +BENTYL20 PO; +Proair Hfa; +VANCO
[2016-10-29 11:24] LABS: BASOPHILS 0.3 %; BASOPHILS ABSOLUTE 0.02 10/3/uL (0.0-0.16); EOSINOPHILS 0.3 %; EOSINOPHILS ABSOLUTE 0.02 10/3/uL (0.0-0.53); ER CBC TAT 0 Hrs 05 Mins; HEMOGLOBIN 9.4 g/dL (12.0-16.0); IMMATURE GRANULOCYTES 0.1 %; IMMATURE GRANULOCYTES ABSOLUTE 0.01 10/3/uL (0.0-0.11); LYMPHOCYTES 6.1 %; LYMPHOCYTES ABSOLUTE 0.45 10/3/uL (0.67-4.30); MEAN CORPUS HGB CONC 32.4 g/dL (32.0-36.0); MEAN CORPUSCULAR HEMOGLOB 28.7 pg (26.0-34.0); MEAN PLATELET VOLUME 9.5 fL (9.2-13.0); MONOCYTES 5.2 %; MONOCYTES ABSOLUTE 0.38 10/3/uL (0.21-1.20); NEUTROPHILS ABSOLUTE 6.46 10/3/uL (2.02-8.40); PLATELET COUNT 466 10/3/uL (150-400); RBC DISTRIBUTION WIDTH 16.5 % (12.0-16.0); RED CELL COUNT 3.27 10/6/uL (4.0-5.6); WHITE BLOOD CELLS 7.3 10/3/uL (4.5-10.5)
[2016-10-29 11:25] LABS: MANUAL DIFF NO %; MEAN CORPUSCULAR VOLUME 88.7 fL (80-100)
[2016-10-29 11:34] LABS: INTERNATIONAL NORMAL RATI 1.1 UNITS (-); PARTIAL THROMBO TIME 30.8 SEC (22.5-37.2)
[2016-10-29 11:35] LABS: PROTIME (NOT ORD) 13.6 SEC (12.0-14.5)
[2016-10-29 11:38] LABS: A/G RATIO 0.7 (0.7-1.9); ALBUMIN 2.3 G/DL (3.5-5.0); CALCIUM, SERUM 8.2 MG/DL (8.5-10.4); CHLORIDE, SERUM 103 MMOL/L (96-112); CO2 (CARBON DIOXIDE) 26 MMOL/L (24-34); CREATININE 0.52 MG/DL (0.55-1.02); GFR AFRICAN AMERICAN 116 ML/MIN (>=60); GFR NON AFRICAN AMERICAN 100 ML/MIN (>=60); GLOBULIN 3.2 G/DL (2.5-4.1); GLUCOSE, SERUM 94 MG/DL (60-99); SGOT(AST) 43 U/L (5-40); SGPT(ALT) 40 U/L (5-65); SODIUM, SERUM 139 MMOL/L (135-148); TOTAL BILIRUBIN 0.3 MG/DL (0-1.2); TOTAL PROTEIN 5.5 G/DL (6.0-8.5)
[2016-10-29 11:39] LABS: ALKALINE PHOSPHATASE 381 U/L (45-117); BUN (BLOOD UREA NITROGEN) 11 MG/DL (6-23)
[2016-10-29] MEDS ORDERED: ALBUTEROL0.083 % INH (12:17)
[2016-10-29 20:05] LABS: LACTATE 0.7 MMOL/L (0.3-2.4)
[2016-10-29 20:11] LABS: PHOSPHORUS, SERUM 2.8 MG/DL (2.5-4.5); TROPONIN I <0.02 NG/ML (<0.05)
[2016-10-29 20:13] LABS: CK-MB 2.8 NG/ML; CPK 60 U/L (0-200)
[2016-10-29 20:37] LABS: PROCALCITONIN 0.15 ng/mL (<0.5)
[2016-10-29 23:48] LABS: TROPONIN I <0.02 NG/ML (<0.05)
[2016-10-29 23:51] LABS: CK-MB 2.2 NG/ML; CPK 56 U/L (0-200)
[2016-10-30 03:16] LABS: ASCORBIC ACID (UR NOT ORDER) NEG (NEG); BILIRUBIN, URINE NEGATIVE (NEG); KETONE, URINE 20 MG/DL (NEG); LEUKOCYTE ESTERASE(NOT OR NEG (NEG); WBC (NOT ORDERED) (RFLEX) 5 (0-5)
[2016-10-30 06:35] LABS: BASOPHILS 0.2 %; BASOPHILS ABSOLUTE 0.01 10/3/uL (0.0-0.16); EOSINOPHILS 1.8 %; HEMOGLOBIN 7.9 g/dL (12.0-16.0); IMMATURE GRANULOCYTES 0.2 %; IMMATURE GRANULOCYTES ABSOLUTE 0.01 10/3/uL (0.0-0.11); LYMPHOCYTES ABSOLUTE 0.61 10/3/uL (0.67-4.30); MEAN CORPUS HGB CONC 32.9 g/dL (32.0-36.0); MEAN CORPUSCULAR HEMOGLOB 28.8 pg (26.0-34.0); MEAN CORPUSCULAR VOLUME 87.6 fL (80-100); MONOCYTES 7.6 %; MONOCYTES ABSOLUTE 0.42 10/3/uL (0.21-1.20); NEUTROPHILS 79.2 %; NEUTROPHILS ABSOLUTE 4.41 10/3/uL (2.02-8.40); PLATELET COUNT 427 10/3/uL (150-400); RBC DISTRIBUTION WIDTH 17.1 % (12.0-16.0); RED CELL COUNT 2.74 10/6/uL (4.0-5.6); WHITE BLOOD CELLS 5.6 10/3/uL (4.5-10.5)
[2016-10-30 06:36] LABS: MANUAL DIFF NO %
[2016-10-30 06:46] LABS: CALCIUM, SERUM 7.8 MG/DL (8.5-10.4); CHLORIDE, SERUM 106 MMOL/L (96-112); CO2 (CARBON DIOXIDE) 23 MMOL/L (24-34); CREATININE 0.37 MG/DL (0.55-1.02); GFR AFRICAN AMERICAN 130 ML/MIN (>=60); GFR NON AFRICAN AMERICAN 112 ML/MIN (>=60); PHOSPHORUS, SERUM 2.1 MG/DL (2.5-4.5); SODIUM, SERUM 138 MMOL/L (135-148)
[2016-10-30 06:47] LABS: BUN (BLOOD UREA NITROGEN) 7 MG/DL (6-23); GLUCOSE, SERUM 151 MG/DL (60-99); POTASSIUM, SERUM 3.1 MMOL/L (3.5-5.3)
[2016-10-31 08:38] LABS: BASOPHILS 0.1 %; BASOPHILS ABSOLUTE 0.01 10/3/uL (0.0-0.16); EOSINOPHILS 0.7 %; EOSINOPHILS ABSOLUTE 0.06 10/3/uL (0.0-0.53); IMMATURE GRANULOCYTES 0.3 %; IMMATURE GRANULOCYTES ABSOLUTE 0.03 10/3/uL (0.0-0.11); LYMPHOCYTES 12.4 %; LYMPHOCYTES ABSOLUTE 1.08 10/3/uL (0.67-4.30); MEAN CORPUS HGB CONC 33.1 g/dL (32.0-36.0); MEAN CORPUSCULAR HEMOGLOB 29.2 pg (26.0-34.0); MEAN CORPUSCULAR VOLUME 88.3 fL (80-100); MEAN PLATELET VOLUME 9.9 fL (9.2-13.0); MONOCYTES 7.8 %; MONOCYTES ABSOLUTE 0.68 10/3/uL (0.21-1.20); NEUTROPHILS 78.7 %; NEUTROPHILS ABSOLUTE 6.84 10/3/uL (2.02-8.40); RBC DISTRIBUTION WIDTH 17.5 % (12.0-16.0)
[2016-10-31 08:39] LABS: HEMATOCRIT 30.2 % (36.0-48.0); MANUAL DIFF NO %; PLATELET COUNT 289 10/3/uL (150-400); RED CELL COUNT 3.42 10/6/uL (4.0-5.6); WHITE BLOOD CELLS 8.7 10/3/uL (4.5-10.5)
[2016-10-31 08:58] LABS: CALCIUM, SERUM 8.2 MG/DL (8.5-10.4); CHLORIDE, SERUM 105 MMOL/L (96-112); CO2 (CARBON DIOXIDE) 23 MMOL/L (24-34); CREATININE 0.35 MG/DL (0.55-1.02); GFR AFRICAN AMERICAN 132 ML/MIN (>=60); GFR NON AFRICAN AMERICAN 114 ML/MIN (>=60); SODIUM, SERUM 136 MMOL/L (135-148)
[2016-10-31 09:12] LABS: BUN (BLOOD UREA NITROGEN) 1 MG/DL (6-23); GLUCOSE, SERUM 118 MG/DL (60-99); POTASSIUM, SERUM 3.7 MMOL/L (3.5-5.3)
[2016-11-01 06:39] LABS: BASOPHILS 0.1 %; BASOPHILS ABSOLUTE 0.01 10/3/uL (0.0-0.16); EOSINOPHILS ABSOLUTE 0.07 10/3/uL (0.0-0.53); HEMATOCRIT 31.8 % (36.0-48.0); HEMOGLOBIN 10.4 g/dL (12.0-16.0); IMMATURE GRANULOCYTES 0.3 %; IMMATURE GRANULOCYTES ABSOLUTE 0.02 10/3/uL (0.0-0.11); LYMPHOCYTES 12.9 %; MEAN CORPUS HGB CONC 32.7 g/dL (32.0-36.0); MEAN CORPUSCULAR HEMOGLOB 28.7 pg (26.0-34.0); MEAN CORPUSCULAR VOLUME 87.8 fL (80-100); MONOCYTES 10.3 %; MONOCYTES ABSOLUTE 0.72 10/3/uL (0.21-1.20); NEUTROPHILS 75.4 %; NEUTROPHILS ABSOLUTE 5.26 10/3/uL (2.02-8.40); RBC DISTRIBUTION WIDTH 17.4 % (12.0-16.0); RED CELL COUNT 3.62 10/6/uL (4.0-5.6)
[2016-11-01 06:44] LABS: MANUAL DIFF NO %; PLATELET COUNT 508 10/3/uL (150-400)
[2016-11-01 06:52] LABS: A/G RATIO 0.7 (0.7-1.9); ALBUMIN 2.4 G/DL (3.5-5.0); CALCIUM, SERUM 8.6 MG/DL (8.5-10.4); CHLORIDE, SERUM 104 MMOL/L (96-112); GFR AFRICAN AMERICAN 139 ML/MIN (>=60); GFR NON AFRICAN AMERICAN 120 ML/MIN (>=60); GLOBULIN 3.4 G/DL (2.5-4.1); GLUCOSE, SERUM 113 MG/DL (60-99); PHOSPHORUS, SERUM 2.5 MG/DL (2.5-4.5); POTASSIUM, SERUM 3.4 MMOL/L (3.5-5.3); SGPT(ALT) 29 U/L (5-65); SODIUM, SERUM 140 MMOL/L (135-148); TOTAL BILIRUBIN 0.2 MG/DL (0-1.2); TOTAL PROTEIN 5.8 G/DL (6.0-8.5)
[2016-11-01 06:56] LABS: ALKALINE PHOSPHATASE 301 U/L (45-117); BUN (BLOOD UREA NITROGEN) 1 MG/DL (6-23); CO2 (CARBON DIOXIDE) 28 MMOL/L (24-34)
[2016-11-01 06:57] LABS: SGOT(AST) 24 U/L (5-40)
[2016-11-02 06:14] LABS: BASOPHILS 0.2 %; BASOPHILS ABSOLUTE 0.02 10/3/uL (0.0-0.16); EOSINOPHILS 0.7 %; EOSINOPHILS ABSOLUTE 0.08 10/3/uL (0.0-0.53); HEMOGLOBIN 10.8 g/dL (12.0-16.0); IMMATURE GRANULOCYTES 0.2 %; IMMATURE GRANULOCYTES ABSOLUTE 0.03 10/3/uL (0.0-0.11); LYMPHOCYTES 11.8 %; LYMPHOCYTES ABSOLUTE 1.43 10/3/uL (0.67-4.30); MEAN CORPUS HGB CONC 32.7 g/dL (32.0-36.0); MEAN CORPUSCULAR HEMOGLOB 28.9 pg (26.0-34.0); MEAN CORPUSCULAR VOLUME 88.2 fL (80-100); MEAN PLATELET VOLUME 9.5 fL (9.2-13.0); MONOCYTES 8.3 %; MONOCYTES ABSOLUTE 1.01 10/3/uL (0.21-1.20); NEUTROPHILS 78.8 %; NEUTROPHILS ABSOLUTE 9.53 10/3/uL (2.02-8.40); PLATELET COUNT 469 10/3/uL (150-400); RBC DISTRIBUTION WIDTH 17.3 % (12.0-16.0); RED CELL COUNT 3.74 10/6/uL (4.0-5.6)
[2016-11-02 06:15] LABS: MANUAL DIFF NO %; WHITE BLOOD CELLS 12.1 10/3/uL (4.5-10.5)
[2016-11-02 06:22] LABS: CALCIUM, SERUM 8.4 MG/DL (8.5-10.4); CHLORIDE, SERUM 100 MMOL/L (96-112); CO2 (CARBON DIOXIDE) 24 MMOL/L (24-34); CREATININE 0.32 MG/DL (0.55-1.02); GFR AFRICAN AMERICAN 136 ML/MIN (>=60); GFR NON AFRICAN AMERICAN 118 ML/MIN (>=60); GLUCOSE, SERUM 129 MG/DL (60-99); SODIUM, SERUM 134 MMOL/L (135-148); TRIGLYCERIDE 91 MG/DL (< 150)
[2016-11-02 06:25] LABS: BUN (BLOOD UREA NITROGEN) 5 MG/DL (6-23); PHOSPHORUS, SERUM 3.7 MG/DL (2.5-4.5); POTASSIUM, SERUM 4.6 MMOL/L (3.5-5.3)
[2016-11-03 06:19] LABS: BASOPHILS 0.1 %; BASOPHILS ABSOLUTE 0.01 10/3/uL (0.0-0.16); EOSINOPHILS 0.6 %; EOSINOPHILS ABSOLUTE 0.07 10/3/uL (0.0-0.53); HEMATOCRIT 32.2 % (36.0-48.0); HEMOGLOBIN 10.5 g/dL (12.0-16.0); IMMATURE GRANULOCYTES 0.3 %; IMMATURE GRANULOCYTES ABSOLUTE 0.03 10/3/uL (0.0-0.11); LYMPHOCYTES 7.4 %; LYMPHOCYTES ABSOLUTE 0.87 10/3/uL (0.67-4.30); MEAN CORPUS HGB CONC 32.6 g/dL (32.0-36.0); MEAN CORPUSCULAR HEMOGLOB 28.7 pg (26.0-34.0); MEAN PLATELET VOLUME 9.9 fL (9.2-13.0); MONOCYTES 8.4 %; MONOCYTES ABSOLUTE 0.98 10/3/uL (0.21-1.20); NEUTROPHILS 83.2 %; NEUTROPHILS ABSOLUTE 9.76 10/3/uL (2.02-8.40); PLATELET COUNT 393 10/3/uL (150-400); RBC DISTRIBUTION WIDTH 17.6 % (12.0-16.0); RED CELL COUNT 3.66 10/6/uL (4.0-5.6); WHITE BLOOD CELLS 11.7 10/3/uL (4.5-10.5)
[2016-11-03 06:21] LABS: MANUAL DIFF NO %
[2016-11-03 06:29] LABS: CALCIUM, SERUM 8.6 MG/DL (8.5-10.4); CHLORIDE, SERUM 102 MMOL/L (96-112); CO2 (CARBON DIOXIDE) 25 MMOL/L (24-34); CREATININE 0.43 MG/DL (0.55-1.02); GFR AFRICAN AMERICAN 124 ML/MIN (>=60); GFR NON AFRICAN AMERICAN 107 ML/MIN (>=60); GLUCOSE, SERUM 136 MG/DL (60-99); PHOSPHORUS, SERUM 4.1 MG/DL (2.5-4.5); SODIUM, SERUM 135 MMOL/L (135-148)
[2016-11-03 06:31] LABS: BUN (BLOOD UREA NITROGEN) 17 MG/DL (6-23)
[2016-11-03 07:33] LABS: ANISOCYTOSIS 1+ (5-10/OIF) (0-5/OIF); BAND NEUTROPHILS 9 %; LYMPHOCYTES 7 %; LYMPHOCYTES ABSOLUTE (CALC) 0.82 10/3/uL (0.67-4.30); MACROCYTES 1+ (5-10/OIF) (0-5/OIF); MONOCYTES 8 %; MONOCYTES ABSOLUTE (CALC) 0.94 10/3/uL (0.21-1.20); NEUTROPHILS ABSOLUTE (CALC) 9.95 10/3/uL (2.02-8.40); PLATELET ESTIMATE ADQ (ADEQUATE); POLYCHROMASIA 1+ (2-5/OIF) (0-1/OIF); SEGMENTED NEUTROPHIL (0) 76 %; TOTAL NUCLEATED CELLS 100
[2016-11-04 07:06] LABS: BASOPHILS 0.1 %; BASOPHILS ABSOLUTE 0.01 10/3/uL (0.0-0.16); EOSINOPHILS 0.6 %; EOSINOPHILS ABSOLUTE 0.06 10/3/uL (0.0-0.53); HEMATOCRIT 29.6 % (36.0-48.0); HEMOGLOBIN 9.6 g/dL (12.0-16.0); IMMATURE GRANULOCYTES 0.4 %; IMMATURE GRANULOCYTES ABSOLUTE 0.04 10/3/uL (0.0-0.11); LYMPHOCYTES 8.7 %; LYMPHOCYTES ABSOLUTE 0.93 10/3/uL (0.67-4.30); MEAN CORPUS HGB CONC 32.4 g/dL (32.0-36.0); MEAN CORPUSCULAR HEMOGLOB 28.3 pg (26.0-34.0); MEAN CORPUSCULAR VOLUME 87.3 fL (80-100); MEAN PLATELET VOLUME 9.5 fL (9.2-13.0); MONOCYTES 9.5 %; MONOCYTES ABSOLUTE 1.02 10/3/uL (0.21-1.20); NEUTROPHILS 80.7 %; NEUTROPHILS ABSOLUTE 8.67 10/3/uL (2.02-8.40); PLATELET COUNT 357 10/3/uL (150-400); RED CELL COUNT 3.39 10/6/uL (4.0-5.6); WHITE BLOOD CELLS 10.7 10/3/uL (4.5-10.5)
[2016-11-04 07:07] LABS: MANUAL DIFF NO %
[2016-11-04 07:27] LABS: BUN (BLOOD UREA NITROGEN) 26 MG/DL (6-23); CALCIUM, SERUM 8.6 MG/DL (8.5-10.4); CHLORIDE, SERUM 101 MMOL/L (96-112); CO2 (CARBON DIOXIDE) 24 MMOL/L (24-34); CREATININE 0.45 MG/DL (0.55-1.02); GFR AFRICAN AMERICAN 122 ML/MIN (>=60); GFR NON AFRICAN AMERICAN 105 ML/MIN (>=60); GLUCOSE, SERUM 117 MG/DL (60-99); PHOSPHORUS, SERUM 3.9 MG/DL (2.5-4.5); POTASSIUM, SERUM 4.6 MMOL/L (3.5-5.3); SODIUM, SERUM 134 MMOL/L (135-148)
[2016-11-05 07:30] LABS: BUN (BLOOD UREA NITROGEN) 28 MG/DL (6-23); CALCIUM, SERUM 8.6 MG/DL (8.5-10.4); CHLORIDE, SERUM 104 MMOL/L (96-112); CO2 (CARBON DIOXIDE) 23 MMOL/L (24-34); CREATININE 0.46 MG/DL (0.55-1.02); GFR AFRICAN AMERICAN 121 ML/MIN (>=60); GFR NON AFRICAN AMERICAN 104 ML/MIN (>=60); GLUCOSE, SERUM 120 MG/DL (60-99); PHOSPHORUS, SERUM 4.4 MG/DL (2.5-4.5); POTASSIUM, SERUM 4.3 MMOL/L (3.5-5.3); SODIUM, SERUM 136 MMOL/L (135-148)
[2016-11-05 07:31] LABS: BASOPHILS 0.2 %; BASOPHILS ABSOLUTE 0.02 10/3/uL (0.0-0.16); EOSINOPHILS 0.9 %; EOSINOPHILS ABSOLUTE 0.09 10/3/uL (0.0-0.53); HEMOGLOBIN 8.1 g/dL (12.0-16.0); IMMATURE GRANULOCYTES 0.3 %; IMMATURE GRANULOCYTES ABSOLUTE 0.03 10/3/uL (0.0-0.11); LYMPHOCYTES 9.1 %; MEAN CORPUS HGB CONC 32.5 g/dL (32.0-36.0); MEAN CORPUSCULAR HEMOGLOB 28.5 pg (26.0-34.0); MEAN CORPUSCULAR VOLUME 87.7 fL (80-100); MEAN PLATELET VOLUME 9.7 fL (9.2-13.0); MONOCYTES 9.8 %; MONOCYTES ABSOLUTE 0.97 10/3/uL (0.21-1.20); NEUTROPHILS 79.7 %; NEUTROPHILS ABSOLUTE 7.91 10/3/uL (2.02-8.40); NUCLEATED RED BLOOD CELLS 0.5 /100WBC (0-0); PLATELET COUNT 304 10/3/uL (150-400); RBC DISTRIBUTION WIDTH 18.1 % (12.0-16.0); RED CELL COUNT 2.84 10/6/uL (4.0-5.6); WHITE BLOOD CELLS 9.9 10/3/uL (4.5-10.5)
[2016-11-05 07:32] LABS: HEMATOCRIT 24.9 % (36.0-48.0); MANUAL DIFF NO %
[2016-11-06 05:41] LABS: BASOPHILS 0.1 %; BASOPHILS ABSOLUTE 0.01 10/3/uL (0.0-0.16); EOSINOPHILS 0.8 %; EOSINOPHILS ABSOLUTE 0.08 10/3/uL (0.0-0.53); IMMATURE GRANULOCYTES 0.2 %; IMMATURE GRANULOCYTES ABSOLUTE 0.02 10/3/uL (0.0-0.11); LYMPHOCYTES 9.6 %; LYMPHOCYTES ABSOLUTE 0.92 10/3/uL (0.67-4.30); MEAN CORPUS HGB CONC 32.5 g/dL (32.0-36.0); MEAN CORPUSCULAR HEMOGLOB 28.9 pg (26.0-34.0); MEAN CORPUSCULAR VOLUME 89.1 fL (80-100); MEAN PLATELET VOLUME 9.9 fL (9.2-13.0); MONOCYTES 7.8 %; MONOCYTES ABSOLUTE 0.75 10/3/uL (0.21-1.20); NEUTROPHILS 81.5 %; NEUTROPHILS ABSOLUTE 7.85 10/3/uL (2.02-8.40); PLATELET COUNT 330 10/3/uL (150-400); RED CELL COUNT 3.11 10/6/uL (4.0-5.6); WHITE BLOOD CELLS 9.6 10/3/uL (4.5-10.5)
[2016-11-06 05:50] LABS: HEMATOCRIT 27.7 % (36.0-48.0); MANUAL DIFF NO %
[2016-11-06 05:57] LABS: BUN (BLOOD UREA NITROGEN) 25 MG/DL (6-23); CALCIUM, SERUM 9.4 MG/DL (8.5-10.4); CHLORIDE, SERUM 103 MMOL/L (96-112); CO2 (CARBON DIOXIDE) 24 MMOL/L (24-34); CREATININE 0.52 MG/DL (0.55-1.02); GFR AFRICAN AMERICAN 116 ML/MIN (>=60); GFR NON AFRICAN AMERICAN 100 ML/MIN (>=60); GLUCOSE, SERUM 96 MG/DL (60-99); PHOSPHORUS, SERUM 4.1 MG/DL (2.5-4.5); POTASSIUM, SERUM 4.3 MMOL/L (3.5-5.3); SODIUM, SERUM 137 MMOL/L (135-148); TRIGLYCERIDE 65 MG/DL (< 150)
[2016-11-07 06:29] LABS: BUN (BLOOD UREA NITROGEN) 27 MG/DL (6-23); CALCIUM, SERUM 9.2 MG/DL (8.5-10.4); CHLORIDE, SERUM 105 MMOL/L (96-112); CO2 (CARBON DIOXIDE) 21 MMOL/L (24-34); CREATININE 0.41 MG/DL (0.55-1.02); GFR AFRICAN AMERICAN 126 ML/MIN (>=60); GFR NON AFRICAN AMERICAN 108 ML/MIN (>=60); PHOSPHORUS, SERUM 3.7 MG/DL (2.5-4.5); POTASSIUM, SERUM 4.5 MMOL/L (3.5-5.3); SODIUM, SERUM 136 MMOL/L (135-148)
[2016-11-07 06:30] LABS: GLUCOSE, SERUM 117 MG/DL (60-99)
[2016-11-07 07:07] LABS: BASOPHILS 0.2 %; BASOPHILS ABSOLUTE 0.02 10/3/uL (0.0-0.16); EOSINOPHILS 1.5 %; EOSINOPHILS ABSOLUTE 0.13 10/3/uL (0.0-0.53); HEMOGLOBIN 7.8 g/dL (12.0-16.0); IMMATURE GRANULOCYTES 0.5 %; IMMATURE GRANULOCYTES ABSOLUTE 0.04 10/3/uL (0.0-0.11); LYMPHOCYTES 9.5 %; LYMPHOCYTES ABSOLUTE 0.81 10/3/uL (0.67-4.30); MEAN CORPUSCULAR HEMOGLOB 28.1 pg (26.0-34.0); MEAN CORPUSCULAR VOLUME 87.8 fL (80-100); MEAN PLATELET VOLUME 10.1 fL (9.2-13.0); MONOCYTES 8.4 %; MONOCYTES ABSOLUTE 0.72 10/3/uL (0.21-1.20); NEUTROPHILS 79.9 %; NEUTROPHILS ABSOLUTE 6.85 10/3/uL (2.02-8.40); PLATELET COUNT 299 10/3/uL (150-400); RBC DISTRIBUTION WIDTH 17.9 % (12.0-16.0); RED CELL COUNT 2.78 10/6/uL (4.0-5.6); WHITE BLOOD CELLS 8.6 10/3/uL (4.5-10.5)
[2016-11-07 07:08] LABS: HEMATOCRIT 24.4 % (36.0-48.0); MANUAL DIFF NO %
== END 2016-11-07 16:37 | disposition left against medical advice (07) | DRG 371 ==
LOC: ER 09:44 → 5SO 12:30
PROVIDERS: Emergency Medicine; Internal Medicine
PROC: 02HV33Z Insertion of Infusion Device into Superior Vena Cava, Percutaneous Approach (ICD-10-PCS; principal; 2016-11-01)
PROC: 4A02X4A Measurement of Cardiac Electrical Activity, Guidance, External Approach (ICD-10-PCS; 2016-11-01)
PROC: 3E0436Z Introduction of Nutritional Substance into Central Vein, Percutaneous Approach (ICD-10-PCS; 2016-11-01)
PROC: 4A02X4A Measurement of Cardiac Electrical Activity, Guidance, External Approach (ICD-10-PCS; 2016-11-01)
DX: A04.7 Enterocolitis due to Clostridium difficile (principal); E43 Unspecified severe protein-calorie malnutrition; K90.9 Intestinal malabsorption, unspecified; F13.20 Sedative, hypnotic or anxiolytic dependence, uncomplicated; F11.20 Opioid dependence, uncomplicated; Z68.1 Body mass index [BMI] 19.9 or less, adult; Z91.19 Patient's noncompliance with other medical treatment and regimen; F60.89 Other specific personality disorders; F41.9 Anxiety disorder, unspecified; J44.9 Chronic obstructive pulmonary disease, unspecified
CPT/HCPCS: 36415; 36569; 74176; 80048; 80053; 81001; 82150; 82330; 82550; 82553; 82962; 83036; 83605; 83615; 83690; 83735; 84100; 84132; 84134; 84145; 84443; 84478; 84484; 85025; 85610; 85730; 86850; 86900; 86901; 86920; 87040; 87449; 87493; 87493-59; 93005; 94640; 97110-GP; 97116-GP; 97162-GP; 97530-GP; 99285; A9270-GY; C1751; C9113; G8978-CK-GP; G8979-CJ-GP; J1170; J1750; J2405; J2550; J3475; P9016